=== PATIENT | female | born 1970 | race Caucasian/White ===

== ENCOUNTER → 2016-09-02 | Outpatient (CLI) | payer OTHER ==
[~2016-09-02] MED LIST: ACET-1256 PO; ATOR-24 PO; HYDR-5688 PO; IBUP-1050 PO; NAPR1TAB9 PO; ONDA4TAB46 PO; OXYC1TAB3 PO; PIRO-104 PO; RXC5 PO; SPIR100T PO
--- NOTE | 2016-09-02 15:12 | DIAGNOSTIC IMAGING REPORT ---
LEFT KNEE MRI HISTORY: LEFT KNEE PAIN COMPARISON STUDY: Left knee radiograph 07/21/2015. TECHNIQUE: Multiplanar multisequence MRI of the left knee was performed according to standard department protocol without the use of contrast. FINDINGS: Menisci: The medial and lateral menisci are intact. The medial meniscus is slightly extruded from the joint space. Ligaments: The anterior and posterior cruciate ligaments are intact. The medial and lateral collateral ligaments are normal in appearance. Extensor mechanism: The quadriceps tendon and patellar ligament are intact. Articular cartilage and bone: No fracture or dislocation. Tricompartmental marginal osteophytes. There is greater than 50% cartilage thinning within the central right portion of the medial femoral condyle. There is mild cartilage thinning within the lateral femoral condyle and lateral patellar facet. Joint effusion: None. Soft tissues: There is an 8.8 x 2.8 x 1.2 cm popliteal cyst. IMPRESSION: 1. Tricompartmental osteoarthritis as described above most pronounced within the medial compartment. 2. Popliteal cyst. 3. The medial meniscus is slightly extruded from the joint space. However, there is no evidence for meniscal tear. Electronically signed by: Rony Gray M.D. 09/02/2016 3:10 PM Dictated Date/Time: 09/02/2016 3:04 PM
== END | disposition home or self-care (01) ==
LOC: C.MRIBC 13:56
PROVIDERS: ATTEND Orthopaedic Surgery
DX: M71.22 Synovial cyst of popliteal space [Baker], left knee (principal)

== ENCOUNTER 2016-10-01 04:51 | Day surgery (SDC) | payer OTHER ==
[2016-09-14 14:41] VITALS: BMI 52.0
[2016-09-14 14:56] LABS: BASO % 0.2 %; BASO ABS # 0.02 K/uL (0-0.2); COMPLETE YES; EOS % 1.8 %; HEMATOCRIT 41.6 % (37-47); IG% 0.3 %; LYMPH % 22.6 %; LYMPH ABS # 2.12 K/uL (1.2-3.4); MEAN CELL VOLUME 95.2 fL (80-100); MEAN CORPUSCULAR HEMOGLOBIN 32.3 pg (25-34); MEAN CORPUSCULAR HGB CONC 33.9 g/dl (32-36); MEAN PLATELET VOLUME 11.4 fL (7.4-10.4); MONO % 8.4 %; NEUT % 66.7 %; PLATELET COUNT 248 K/uL (130-400); RED BLOOD COUNT 4.37 M/uL (4.2-5.4)
--- NOTE | 2016-09-14 15:12 | PAT Medication Instructions ---
Service Date Sep 14, 2016. Current Home Medication List Acetaminophen (Tylenol), 1,000 MG PO Q6 PRN for Pain Atorvastatin (Lipitor), 40 MG PO QPM Naproxen (Aleve), 440 MG PO QAM Ondansetron Hcl (Zofran), 4 MG PO PRN PRN for Nausea Oxycodone Ir (Roxicodone Ir), 5 MG PO Q4H PRN for Severe Pain Piroxicam (Piroxicam), 1 CAP PO DAILY PRN for Pain Spironolactone (Aldactone), 100 MG PO HS Medication Instructions For Your Scheduled Surgery - Check with surgeon for instructions: Piroxicam (Piroxicam), 1 CAP PO DAILY PRN for Pain Naproxen (Aleve), 440 MG PO QAM - Take the following medications the morning of surgery with a sip of water: Ondansetron Hcl (Zofran), 4 MG PO PRN PRN for Nausea (if needed) Oxycodone Ir (Roxicodone Ir), 5 MG PO Q4H PRN for Severe Pain (okay to take up to 4 hours prior to surgery if needed) - Take the following medications as scheduled the night before surgery: Spironolactone (Aldactone), 100 MG PO HS Atorvastatin (Lipitor), 40 MG PO QPM Ondansetron Hcl (Zofran), 4 MG PO PRN PRN for Nausea (if needed) Oxycodone Ir (Roxicodone Ir), 5 MG PO Q4H PRN for Severe Pain (if needed) If you have any questions please call us at [phone] (Meredith Rouse PA-C) or [phone] or [phone]
[2016-09-14 15:30] LABS: BUN/CREATININE RATIO 8.3 (10-20); CALCIUM 9.1 mg/dl (8.5-10.1); CREATININE 0.81 mg/dl (0.60-1.20); POTASSIUM 3.8 mmol/L (3.5-5.1)
--- NOTE | 2016-09-30 12:26 | HISTORY & PHYSICAL EXAMINATION ---
DATE OF ADMISSION: 10/01/2016 CHIEF COMPLAINT: Medial meniscal tear of the left knee. HISTORY OF PRESENT ILLNESS: Maria De Jesus is a pleasant 46-year-old female who I did a unicompartmental right knee arthroplasty on in the past. She has done very well with that. Unfortunately she is having a lot of left knee pain. She has trouble getting out of her recliner and trouble doing simple daily activities. She is also having a lot of trouble at work. The x-rays do not look too bad, they do not look as bad as her contralateral side did. It shows a little medial compartmental arthritis. MRI of her knee does show some arthritis but also shows an extruded medial meniscus tear. After discussions we have elected to proceed with arthroscopy. MEDICATIONS: Tylenol 1000 mg every 6 hours as needed, Lipitor 40 mg daily, Aleve as needed for pain, Zofran 4 mg as needed, oxycodone 5 mg every 4 hours as needed, Piroxicam 20 mg as needed and Aldactone 100 mg at night. PAST MEDICAL HISTORY: Migraines. PAST SURGICAL HISTORY: Significant for tonsillectomy, cholecystectomy, tubal ligation, , hysterectomy and a right unicompartmental knee arthroplasty. ALLERGIES: SULFA. FAMILY HISTORY: Noncontributory. SOCIAL HISTORY: She is . She rarely drinks. She is moderately active. REVIEW OF SYSTEMS: She complains of left knee pain. All other pertinent review of systems are negative. PHYSICAL EXAMINATION: GENERAL: She is awake, alert and orient x3. She is in no apparent distress. She is very pleasant. HEENT: Pupils are equal, round and reactive to light. Extraocular motions are intact. Oral mucosa is pink and moist. HEART: Regular rate per radial pulse. LUNGS: Lizzette symmetrically bilaterally with no audible breath sounds. ABDOMEN: Soft, nontender, nondistended. MUSCULOSKELETAL: On physical examination of the left knee she does walk independently. She has good motion from 0-125 degrees. No instability. She has more pain in the patellofemoral region that radiates up her distal quad. She has mild pain along the medial and lateral joint lines. MRI: MRI of her left knee does show mild tricompartmental arthritis slightly worse in the medial compartment. There is a little patellofemoral arthritis. There is some signs of degenerative meniscal pathology. IMPRESSION: Mild arthritis of the left knee with meniscus tear. PLAN: Will proceed with a left knee arthroscopy. Her pain is debilitating. I do not think she is a candidate for a knee replacement at this point. After the arthroscopy she will be discharged to home with oral pain medications.
[~2016-10-01] VITALS: Ht 154.9 cm; Wt 123.4 kg
[~2016-10-01 04:51] MED LIST changes: -HYDR-5688 PO; -IBUP-1050 PO; -RXC5 PO
[2016-10-01 05:32] VITALS: BP 142/90; PULSE 76; TEMP 36.6; O2SAT 96; Ht 154.9 cm; Wt 123.4 kg
[2016-10-01] MEDS ORDERED: CEFAZOLIN 3000 MG/65 ML D5W 65 ML IV SCH (06:00)
[2016-10-01] MEDS ORDERED: ACETAMINOPHEN 500 MG TAB PO SCH (06:00)
[2016-10-01] MEDS ORDERED: LACTATED RINGER'S 1000ML IV SCH (06:00)
[2016-10-01] MEDS ORDERED: LACTATED RINGER'S 1000ML 1,000 ML IV SCH (06:00)
[2016-10-01] MEDS ORDERED: LIDOCAINE 2% 20 MG/ML 5ML SYR ONE (06:18)
[2016-10-01] MEDS ORDERED: ROCURONIUM BROMIDE 10 MG/ML 5 ML VIAL ONE (06:18)
[2016-10-01] MEDS ORDERED: SUCCINYLCHOLINE CHLORIDE 20 MG/ML 10 ML VIAL IV ONE (06:18)
[2016-10-01] MEDS ORDERED: MIDAZOLAM HCL 1 MG/ML 2ML VIAL ONE (06:18)
[2016-10-01] MEDS ORDERED: ONDANSETRON INJ 2 MG/ML 2 ML VIAL ONE (06:18)
[2016-10-01] MEDS ORDERED: FENTANYL CITRATE INJ 50 MCG/1 ML 2 ML VIAL ONE (06:18)
[2016-10-01] MEDS ORDERED: DEXAMETHASONE SOD INJ 4 MG/ML VIAL ONE (06:18)
[2016-10-01] MEDS ORDERED: PROPOFOL IV EMULSION 10 MG/ML 20 ML VIAL IV ONE (06:18)
--- NOTE | 2016-10-01 06:24 | History & Physical Bridge Note ---
H&P Re-Evaluation Bridge Note: I have examined the patient, reviewed the History & Physical and in the interval since the performance of the History & Physical I have noted the following changes of clinical significance: No changes noted
[2016-10-01] MEDS ORDERED: KETOROLAC TROMETHAMINE 30 MG/ML VIAL ONE (06:28)
[2016-10-01] MEDS ORDERED: EpINEphrine INJ 1MG/ML AMP 1 MG/ML AMP ONE (06:29)
[2016-10-01] MEDS ORDERED: ALBUTEROL HFA INHALER 8.5 GM INH ONE (07:28)
[2016-10-01] MEDS ORDERED: ROPIVACAINE 0.5% 5 MG/ML 30 ML VIAL XX ONE (07:28)
[2016-10-01] MEDS ORDERED: LACTATED RINGER'S 1000ML 1,000 ML IV PRN (07:43)
[2016-10-01] MEDS ORDERED: HYDR-5688 PO (07:44)
[2016-10-01] MEDS ORDERED: KETOROLAC TROMETHAMINE 30 MG/ML VIAL IV. PRN (07:45)
[2016-10-01] MEDS ORDERED: ONDANSETRON INJ 2 MG/ML 2 ML VIAL IV PRN ×2 (07:45→08:00)
[2016-10-01] MEDS ORDERED: FENTANYL CITRATE INJ 50 MCG/1 ML 2 ML VIAL IV PRN (07:45)
[2016-10-01] MEDS ORDERED: SODIUM CHLORIDE 0.9% 1000ML 1,000 ML IV SCH (07:47)
--- NOTE | 2016-10-01 07:47 | Discharge Instructions ---
Discharge Instructions Date of Service October 01, 2016. Admission Reason for Admission: Acute Meniscal Tear, Medial Discharge Discharge Diagnosis / Problem: SAME ABOVE Discharge Goals Goal(s): Decrease discomfort, Improve function Activity Recommendations Activity Limitations: as noted below Lifting Limitations: gradually increase as tolerated Exercise/Sports Limitations: gradually increase as tolerated Weightbearing Status: Left weightbearing (as tolerated) . Instructions / Follow-Up Instructions / Follow-Up MEDICATIONS: * Resume previous medications unless instructed otherwise by your surgeon. * Always take pain medication on a full stomach or with food to avoid upset stomach. * Do not drink alcohol or drive while taking narcotics. * Ibuprofen or Tylenol may be taken if narcotic not needed. SPECIAL CARE INSTRUCTIONS: __ None _X_ Keep extremity elevated and iced x 48 hours; apply ice 20-30 minutes 8-10 times/day. May remove at night. _X_ Crutches _X_ May discard when able __ Brace/Post-op shoe __ 24 hrs/day __ Remove at night _X_ Dressing __ Maintain until seen in office, may shower with plastic over site _X_ Remove dressings in 24-48 hours and then may shower _X_ Cover incisions with band-aids after showering __ Do not remove steri-strips Call physician if chills or temperature rises above 102 degrees or pain unrelieved by prescribed pain medications. Office [phone] Current Hospital Diet Patient's current hospital diet: Discharge Diet Recommended Diet: Regular Diet Fluid Restriction: None Procedures Procedures Performed: Left Knee Arthroscopy, chondroplasty and Partial Medial Menisectomy Pending Studies Studies pending at discharge: no Work Instructions Return To Work: 3 days (WHEN PAIN IS TOLERATED ) Medical Emergencies . Who to Call and When: Medical Emergencies: If at any time you feel your situation is an emergency, please call 911 immediately. . Non-Emergent Contact Non-Emergency issues call your: Primary Care Provider Call Non-Emergent contact if: you have a fever, temperature is above 101.5 . "Provider Documentation" section prepared by Jered Henderson. . VTE Core Measure Inpt VTE Proph given/why not?: Treatment not indicated
[2016-10-01] MEDS ORDERED: HYDROCODONE/ACETAMOPHEN 5/325MG TAB PO PRN ×2 (08:00)
--- NOTE | 2016-10-01 08:20 | Anesthesiology Progress Note ---
Anesthesia Post Op Note Date & Time October 01, 2016 at 08:20 Vital Signs Pain Intensity: 0 Vital Signs Past 12 Hours Date Time Temp Pulse Resp B/P Pulse Ox O2 Delivery O2 Flow Rate FiO2 10/01/16 07:43 36.5 77 20 159/96 100 Mask 10 10/01/16 05:32 36.6 76 18 142/90 96 Room Air Notes Mental Status: alert / awake / arousable, participated in evaluation Pt Amnestic to Procedure: Yes Nausea / Vomiting: adequately controlled Pain: adequately controlled Airway Patency, RR, SpO2: stable & adequate BP & HR: stable & adequate Hydration State: stable & adequate Anesthetic Complications: no major complications apparent Pt doing well.
[2016-10-01 08:26] VITALS: BP 137/76; PULSE 90; TEMP 36.8; O2SAT 94
[2016-10-01] MEDS ORDERED: HYDROCODONE/ACETAMOPHEN 5/325MG TAB ONE (08:45)
[2016-10-01 08:55] VITALS: BP 134/75; PULSE 77; O2SAT 95
[2016-10-01 09:25] VITALS: BP 137/89; PULSE 87; TEMP 36.8; O2SAT 94
--- NOTE | 2016-10-01 09:54 | OPERATIVE REPORT ---
DATE OF OPERATION: 10/01/2016 PREOPERATIVE DIAGNOSIS: Osteoarthritis of the left knee with partial medial meniscal tear. POSTOPERATIVE DIAGNOSES: Mild to moderate tricompartmental arthritis of the left knee with small medial meniscal tear and suprapatellar synovitis. PROCEDURES: Left knee arthroscopy with chondroplasty, partial medial meniscectomy and limited synovectomy. SURGEON: Dr. Zeb Solano. CELL TUBER MACHINE: Bob Henderson PA-C, whose assistance was necessary for positioning of the leg and helping with instrumentation. ANESTHESIA: General. COMPLICATIONS: None. CONDITION: Stable to PACU. INDICATIONS: Maria De Jesus is a pleasant 46-year-old female who presented to my office with complaints of increasing left knee pain. Her pain is little out of proportion of what the x-rays showed. MRI showed mild to moderate arthritis and a small medial meniscal tear. Most of her pain was located in the suprapatellar region. She elected to undergo arthroscopy. OPERATION AND FINDINGS: On 10/01/2016, she arrived at [facility] for the above procedure. She was seen in the preoperative holding area and the operative extremity was identified and signed. She was given a preoperative antibiotic and taken back to the operating room, laid on the table in supine position and put under general anesthesia. The left knee was then prepped and draped in sterile fashion. Time-out was done and the patient and operative extremity was properly identified. A scope was introduced in the lateral parapatellar portal. Diagnostic arthroscopy showed some grade 2 and 3 chondral changes of the distal medial femoral condyle. It did not look too bad. There was a little bit of fraying to the cartilage and a few small loose cartilage chunks. There was a little grade 2 changes on the tibial plateau. There was a little fraying in the posterior medial meniscus, but no large tears. A medial parapatellar portal was made under direct visualization and a shaver was used to start a chondroplasty and do a partial medial meniscectomy. The scope was then brought into the trochlea. ACL and PCL were intact. The scope was brought into the lateral compartment. There was an area of grade 3 chondral changes on the medial aspect of the lateral femoral condyle. The tibial plateau looked okay. The meniscus was intact. There was some redundant entrapped fat pad anteriorly that was removed with the shaver. The scope was then brought into the suprapatellar pouch. There were some grade 4 chondral changes in the trochlea and some grade 3 chondral changes on the lateral facets of the patella. There was a lot of synovitis in the suprapatellar region. A shaver was used to do a limited synovectomy of the suprapatellar region. This is where most of her pain was coming from. The scope was then put into the medial parapatellar portal. Repeat diagnostic arthroscopy showed no additional pathology. A shaver was used to do a final debridement and removal of any tissue remnants. Arthroscopic instruments were then removed from the knee. Portal sites were closed with 3-0 nylon. The knee was then injected with 10 mL of Toradol. She was then placed in a soft compressive dressing, extubated, transferred to a litter and taken to the postanesthesia care unit in stable condition. She tolerated the procedure well. I attest to the content of the Intraoperative Record and any orders documented therein. Any exceptio ns are noted below.
== END 2016-10-01 09:28 | disposition home or self-care (01) ==
LOC: C.ACU 04:51
PROVIDERS: ATTEND Orthopaedic Surgery
DX: M23.204 Derangement of unspecified medial meniscus due to old tear or injury, left knee (principal); M17.12 Unilateral primary osteoarthritis, left knee; Z96.651 Presence of right artificial knee joint; Z90.49 Acquired absence of other specified parts of digestive tract; Z90.710 Acquired absence of both cervix and uterus

== ENCOUNTER → 2018-01-04 | Day surgery (SDC) | payer OTHER ==
[2018-01-03 13:34] VITALS: Ht 154.9 cm; Wt 120.5 kg
[~2018-01-04] VITALS: Ht 154.9 cm; Wt 120.5 kg
[~2018-01-04] MED LIST changes: +LIDOCAINE HCL 2% 2 ML VIAL (20MG/ML) ONE; -NAPR1TAB9 PO; +OXYC-57 PO; -OXYC1TAB3 PO; -PIRO-104 PO; +PROPOFOL IV EMULSION 10 MG/ML 20 ML VIAL ONE; +SODIUM CHLORIDE 0.9% 500ML 500 ML IV ONE; +TRAM-10 PO
--- NOTE | 2018-01-04 10:21 | Endo History and Physical ---
History & Physical Date of Service: Jan 04, 2018. Chief Complaint: Referring Physician: History of Present Illness Colonoscopy for screening in view of perforated appendix Past Surgical History Hx Cardiac Surgery: No Hx Internal Defibrillator: No Hx Pacemaker: No Hx Abdominal Surgery: Yes ( 1992, gall bladder removed in 1992, partial hysterectomy 98, APPY) Hx of Implantable Prosthesis: No Hx Post-Op Nausea and Vomiting: No Hx Cancer Surgery: No Hx Thoracic Surgery: No Hx Orthopedic: Yes (R partial knee replacement jan 2016, L KNEE MENISCUS REPAIR) Hx Urinary Tract Surgery: No Family History Polyp Social History Smoking Status: Former Smoker Hx Substance Use: No Hx Alcohol Use: Yes (2 coolers every tuesday ) Allergies Coded Allergies: Sulfa Antibiotics (Verified Allergy, Unknown, hives/fever, 01/04/18) Current Medications Reported Home Medications Medications Dose Route/Sig Max Daily Dose Days Date Category Tylenol (Acetaminophen) 500 Mg Tab 2 Tab PO DAILY 01/03/18 Reported Percocet 5MG/325MG (Oxycodone/Acetaminophen) Tab 1-2 Tablets PO Q4H PRN 10/23/17 Rx Zofran (Ondansetron HCl) 4 Mg Tab 4 Mg PO UD PRN 10/21/17 Reported Ultram (Tramadol HCl) 50 Mg Tab 50 Mg PO UD PRN 10/21/17 Reported Lipitor (Atorvastatin Calcium) 40 Mg Tab 40 Mg PO QPM 01/23/16 Reported Aldactone (Spironolactone) 100 Mg Tab 100 Mg PO HS 01/23/16 Reported Vital Signs Weight (Kilograms): 120.45 Height (Feet): 5 Height (Inches): 1 Physical Exam General Appearance: no apparent distress Respiratory/Chest: Auscultation: breath sounds normal Cardiovascular: Heart Auscultation: RRR Abdomen: Inspection & Palpation: non-distended Assessment and Plan Stable for colonoscopy
--- NOTE | 2018-01-04 11:48 | GI REPORT ---
Patient Name: Maria De Jesus Lockwood Procedure Date: 01/04/2018 10:45 AM Date of : 1970 Admit Type: Outpatient Age: 47 Gender: Female Attending MD: Abelardo Solis MD Procedure: Colonoscopy Providers: Abelardo Solis MD Referring MD: Mane Oviedo Mona D. Duncan Indications: Screening for colorectal malignant neoplasm Medicines: Monitored Anesthesia Care Complications: No immediate complications. Estimated Blood Loss: Estimated blood loss: none. Procedure: Pre-Anesthesia Assessment: - Prior to the procedure, a History and Physical was performed, and patient medications and allergies were reviewed. The patient is competent. The risks and benefits of the procedure and the sedation options and risks were discussed with the patient. All questions were answered and informed consent was obtained. Patient identification and proposed procedure were verified by the physician and the nurse in the procedure room. Mental Status Examination: alert and oriented. Airway Examination: normal oropharyngeal airway and neck mobility. Respiratory Examination: clear to auscultation. CV Examination: normal. ASA Grade Assessment: III - A patient with severe systemic disease. After reviewing the risks and benefits, the patient was deemed in satisfactory condition to undergo the procedure. The anesthesia plan was to use monitored anesthesia care (MAC). Immediately prior to administration of medications, the patient was re-assessed for adequacy to receive sedatives. The heart rate, respiratory rate, oxygen saturations, blood pressure, adequacy of pulmonary ventilation, and response to care were monitored throughout the procedure. The physical status of the patient was re-assessed after the procedure. After I obtained informed consent, the scope was passed under direct vision. Throughout the procedure, the patient's blood pressure, pulse, and oxygen saturations were monitored continuously. The scope was introduced through the anus and advanced to the terminal ileum. The colonoscopy was performed without difficulty. The patient tolerated the procedure well. The quality of the bowel preparation was good. The terminal ileum, ileocecal valve, appendiceal orifice, and rectum were photographed. Findings: The perianal and digital rectal examinations were normal. The terminal ileum appeared normal. The appendiceal orifice is normal. A 6 mm polyp was found in the ascending colon. The polyp was sessile. The polyp was removed with a cold snare. Resection and retrieval were complete. Verification of patient identification for the specimen was done by the physician and nurse using the patient's name and date. Non-bleeding internal hemorrhoids were found during retroflexion. The hemorrhoids were small. Impression: - The examined portion of the ileum was normal. - One 6 mm polyp in the ascending colon, removed with a cold snare. Resected and retrieved. - Non-bleeding internal hemorrhoids. Recommendation: - Discharge patient to home. - Await pathology results. - Repeat colonoscopy in 5 years for surveillance. - Return to referring physician. Abelardo Solis MD 01/04/2018 11:48:14 AM This report has been signed electronically. Note Initiated On: 01/04/2018 10:45 AM Number of Addenda: 0 I attest to the content of the Intraoperative Record and orders documented therein, exceptions below {[id number]}
--- NOTE | 2018-01-04 11:50 | Discharge Instructions ---
Endoscopy Patient Instructions Date / Procedure(s) Performed Jan 04, 2018. Colonoscopy Allergy Information Coded Allergies: Sulfa Antibiotics (Verified Allergy, Unknown, hives/fever, 01/04/18) Discharge Date / Findings Jan 04, 2018. Small polyp in ascending colon. hemorrhoids Provider Instructions Activity Restrictions - No exercising or heavy lifting for 24 hours. - Do not drink alcohol the day of the procedure. - Do not drive a car or operate machinery until the day after the procedure. - Do not make any important decisions or sign important papers in 24 hours after the procedure. Following Day: - Return to full activity which may include returning to work/school. Diet Start your diet with liquids and light foods (jello, soup, juice, toast). Then eat your usual diet if not nauseated. Treatment For Common After Affects For mild abdominal pain, bloating, or excessive gas: - Rest - Eat lightly - Lie on right side Follow-Up Information Follow-up with DR. CARDOZO as scheduled Anesthesia Information What You Should Know You have had a procedure that required some medicine to reduce anxiety and discomfort. This treatment is called moderate sedation. After receiving the treatment, you may be sleepy, but you will be able to breathe on your own. The effects of the treatment may last for several hours. Follow these instructions along with Activity/Diet recommendations noted above: * Do NOT do anything where dizziness or clumsiness would be dangerous. * Rest quietly at home today, then you can be up and about tomorrow. * Have a responsible person stay with you the rest of today. * You may have had an I.V. today. If so, you may take the dressing off later today. Recommendations Call your doctor if: * Trouble breathing * Continuous vomiting for more than 24 hours * Temperature above 101 degrees * Severe abdominal pain or bloating * Pain not relieved by pain medicine ordered * There is increased drainage or redness from any incision * A large amount of rectal bleeding greater than 2-3 tablespoons. (If you had a polyp/s removed or have hemorrhoids, a small amount of blood - from the rectum is to be expected.) * You have any unanswered questions or concerns. IN THE EVENT OF A SERIOUS EMERGENCY, GO TO THE NEAREST EMERGENCY ROOM Your discharge instructions were prepared by provider Abelardo Solis. Patient Instructions Signature Page Maria De Jesus Lockwood Patient (or Guardian) Signature/Date: I have read and understand the instructions given to me by my caregivers. Caregiver/RN/Doctor Signature/Date: The above-named patient and/or guardian has received patient instructions on this date. + Original Patient Signature Page (only) stays with chart. Please make copy for patient.
[2018-01-04 12:13] VITALS: BP 133/86; PULSE 73; O2SAT 96
--- NOTE | 2018-01-04 12:14 | Anesthesiology Progress Note ---
Anesthesia Post Op Note Date & Time Jan 04, 2018 at 12:14 Vital Signs Pain Intensity: 0 Vital Signs Past 12 Hours Date Time Temp Pulse Resp B/P (MAP) Pulse Ox O2 Delivery O2 Flow Rate FiO2 01/04/18 11:56 72 20 132/88 (103) 97 Room Air 01/04/18 11:41 36.5 80 16 129/83 (98) 97 Room Air 01/04/18 10:32 36.6 75 20 132/87 (102) 93 Room Air Notes Mental Status: alert / awake / arousable, participated in evaluation Pt Amnestic to Procedure: Yes Nausea / Vomiting: adequately controlled Pain: adequately controlled Airway Patency, RR, SpO2: stable & adequate BP & HR: stable & adequate Hydration State: stable & adequate Anesthetic Complications: no major complications apparent
== END | disposition home or self-care (01) ==
LOC: C.GI 09:09
PROVIDERS: ATTEND Student in an Organized Health Care Education/Training Program
DX: Z12.11 Encounter for screening for malignant neoplasm of colon (principal); D12.2 Benign neoplasm of ascending colon; K64.8 Other hemorrhoids; Z83.71 Family history of colonic polyps; Z88.2 Allergy status to sulfonamides; Z87.891 Personal history of nicotine dependence; Z79.899 Other long term (current) drug therapy

== ENCOUNTER 2018-01-16 06:08 | Emergency (ER) | payer OTHER ==
[~2018-01-16] VITALS: Ht 154.9 cm; Wt 118.0 kg
[~2018-01-16 06:08] MED LIST changes: -LIDOCAINE HCL 2% 2 ML VIAL (20MG/ML) ONE; -PROPOFOL IV EMULSION 10 MG/ML 20 ML VIAL ONE; -SODIUM CHLORIDE 0.9% 500ML 500 ML IV ONE
[2018-01-16 06:11] VITALS: TEMP 36.7; Ht 154.9 cm; Wt 118.0 kg
[2018-01-16] MEDS ORDERED: SODIUM CHLORIDE 0.9% 1000ML 1,000 ML IV STA (06:48)
[2018-01-16] MEDS ORDERED: KETOROLAC TROMETHAMINE 30 MG/ML VIAL IV STA (06:48)
[2018-01-16] MEDS ORDERED: ONDANSETRON INJ 2 MG/ML 2 ML VIAL IV STA (06:48)
[2018-01-16 06:56] LABS: BASO % 0.5 %; BASO ABS # 0.04 K/uL (0-0.2); EOS ABS # 0.17 K/uL (0-0.5); HEMATOCRIT 43.3 % (37-47); IG# 0.02 K/uL (0.00-0.02); LYMPH % 26.4 %; LYMPH ABS # 2.24 K/uL (1.2-3.4); MEAN CELL VOLUME 93.1 fL (80-100); MEAN CORPUSCULAR HEMOGLOBIN 32.3 pg (25-34); MEAN CORPUSCULAR HGB CONC 34.6 g/dl (32-36); MEAN PLATELET VOLUME 11.5 fL (7.4-10.4); MONO ABS # 0.51 K/uL (0.11-0.59); NEUT % 64.9 %; PLATELET COUNT 288 K/uL (130-400); RED CELL DISTRIBUTION WIDTH CV 13.7 % (11.5-14.5); RED CELL DISTRIBUTION WIDTH SD 46.3 fL (36.4-46.3); WHITE BLOOD COUNT 8.48 K/uL (4.8-10.8)
[2018-01-16 07:06] LABS: ALBUMIN 3.8 gm/dl (3.4-5.0); ALKALINE PHOSPHATASE 73 U/L (45-117); ALT/SGPT 34 U/L (12-78); AST/SGOT 26 U/L (15-37); BLOOD UREA NITROGEN 4 mg/dl (7-18); CALCIUM 9.2 mg/dl (8.5-10.1); CARBON DIOXIDE 25 mmol/L (21-32); CREATININE 0.74 mg/dl (0.60-1.20); GLUCOSE 107 mg/dl (70-99); LIPASE 104 U/L (73-393); POTASSIUM 3.6 mmol/L (3.5-5.1); SODIUM 142 mmol/L (136-145)
--- NOTE | 2018-01-16 07:32 | DIAGNOSTIC IMAGING REPORT ---
CT SCAN OF THE ABDOMEN AND PELVIS WITHOUT CONTRAST CLINICAL HISTORY: Right flank pain hematuria COMPARISON STUDY: October 21, 2017 TECHNIQUE: CT scan of the abdomen and pelvis was performed from the lung bases to the proximal femurs. Images are reviewed in the axial, sagittal, and coronal planes. IV contrast was not administered for this examination. A dose lowering technique was utilized adhering to the principles of ALARA. CT DOSE: 1776.26 mGy.cm FINDINGS: Lower chest: The heart is normal in size and configuration, without pericardial effusion. The lung bases and pleural spaces are clear. Liver: The unenhanced liver is normal in size, contour, and attenuation. There is no intrahepatic biliary ductal dilatation. Gallbladder: Surgically absent Spleen: Normal in size and attenuation. Pancreas: Unremarkable. Adrenal glands: Unremarkable. Kidneys: No renal, ureteral, or bladder calculi are visualized. Bowel: There are no transition zones indicate bowel obstruction. The patient is status post a prior appendectomy. There is no acute diverticulitis. Peritoneum: There is no intraperitoneal free air or abdominal ascites. Vasculature: The abdominal aorta is normal in course and caliber. Adenopathy: None. Pelvic viscera: The uterus is surgically absent Skeletal structures: No destructive osseous lesions are seen. IMPRESSION: 1. No acute intra-abdominal or pelvic findings 2. No evidence of bowel obstruction. No evidence of free air 3. No renal, ureteral, or bladder calculi identified Electronically signed by: Cedrick Dickinson M.D. 01/16/2018 7:31 AM Dictated Date/Time: 01/16/2018 7:27 AM
--- NOTE | 2018-01-16 07:43 | EMERGENCY ROOM VISIT NOTE ---
History Report prepared by Grover: Ender Langston Under the Supervision of: Dr. Yobani Morales D.O. First contact with patient: 06:37 Chief Complaint: BACK PAIN Stated Complaint: RT SIDE BACK HURT REAL BAD AND NAUSEA History of Present Illness The patient is a 47 year old female who presents to the Emergency Room with complaints of constant back pain beginning a few weeks ago. The patient states that her back pain started a few weeks ago and is centralized to her right lower back. She notes that she has been taking tramadol and oxycodone for her pain with no relief. She reports that her pain worsened this morning, and she states that bending over to tie her shoes worsened her pain. She rates her pain as a 6/10. She also complains of nausea. She denies any vomiting. She notes that she pulled a muscle in her back a month and a half ago. She reports that she has a history of kidney stones and is unsure if her current pain is caused by another kidney stone. The patient states that she also has a history of kidney infections. She notes that she does not take any blood pressure medication. She reports that she had a partial hysterectomy and has not had her period in the last twenty years. Source of History: patient Onset: a few weeks ago Position: back (lower right) Symptom Intensity: 6/10 Timing: constant Modifying Factors (Worsening): other (bending over) Associated Symptoms: + nausea, No vomiting Review of Systems See HPI for pertinent positives & negatives. A total of 10 systems reviewed and were otherwise negative. Past Medical & Surgical Medical Problems: (1) Kidney infection (2) Kidney stone (3) Osteoarthritis of knee (4) RLQ abdominal pain Surgical Problems: (1) History of appendectomy (2) History of cholecystectomy (3) History of partial hysterectomy (4) Hx of tonsillectomy (5) Previous section Family History Cancer Diabetes mellitus Gallbladder disease Heart disease Hypertension Social History Smoking Status: Never Smoker Marital Status: Occupation Status: employed Current/Historical Medications Scheduled Acetaminophen (Tylenol), 2 TAB PO DAILY Atorvastatin (Lipitor), 40 MG PO QPM Spironolactone (Aldactone), 100 MG PO HS Scheduled PRN Ondansetron Hcl (Zofran), 4 MG PO UD PRN for Nausea Oxycodone/Acetaminophen 5MG/325MG (Percocet 5MG/325MG), 1-2 TABLETS PO Q4H PRN for Pain Tramadol (Ultram), 50 MG PO UD PRN for Pain Allergies Coded Allergies: Sulfa Antibiotics (Verified Allergy, Unknown, hives/fever, 01/16/18) Physical Exam Vital Signs Date Time Temp Pulse Resp B/P (MAP) Pulse Ox O2 Delivery O2 Flow Rate FiO2 01/16/18 06:11 36.7 81 16 157/105 96 Room Air Physical Exam CONSTITUTIONAL/VITAL SIGNS: Reviewed / noted above. GENERAL: Non-toxic in appearance. INTEGUMENTARY: Warm, dry, and Hulbert. HEAD: Normocephalic. EYES: without scleral icterus or trauma. ENT/OROPHARYNX: clear and moist. LYMPHADENOPATHY/NECK: Is supple without lymphadenopathy or meningismus. RESPIRATORY: Lungs clear and equal. CARDIOVASCULAR: Regular rate and rhythm. GI/ABDOMEN: Soft and nontender. No organomegaly or pulsatile mass. No rebound or guarding. Normal bowel sounds. EXTREMITIES: Warm and well perfused. BACK: Right CVA tenderness but also tenderness to palpation to the right back musculature. NEUROLOGICAL: Intact without focal deficits. PSYCHIATRIC: normal affect. MUSCULOSKELETAL: Normally developed with good muscle tone. Medical Decision & Procedures ER Provider Diagnostic Interpretation: Radiology results as stated below per my review and radiologist interpretation: CT SCAN OF THE ABDOMEN AND PELVIS WITHOUT CONTRAST FINDINGS: Lower chest: The heart is normal in size and configuration, without pericardial effusion. The lung bases and pleural spaces are clear. Liver: The unenhanced liver is normal in size, contour, and attenuation. There is no intrahepatic biliary ductal dilatation. Gallbladder: Surgically absent Spleen: Normal in size and attenuation. Pancreas: Unremarkable. Adrenal glands: Unremarkable. Kidneys: No renal, ureteral, or bladder calculi are visualized. Bowel: There are no transition zones indicate bowel obstruction. The patient is status post a prior appendectomy. There is no acute diverticulitis. Peritoneum: There is no intraperitoneal free air or abdominal ascites. Vasculature: The abdominal aorta is normal in course and caliber. Adenopathy: None. Pelvic viscera: The uterus is surgically absent Skeletal structures: No destructive osseous lesions are seen. IMPRESSION: 1. No acute intra-abdominal or pelvic findings 2. No evidence of bowel obstruction. No evidence of free air 3. No renal, ureteral, or bladder calculi identified Electronically signed by: Cedrick Dickinson M.D. 01/16/2018 7:31 AM Laboratory Results 01/16/18 06:33 Red Blood Count 4.65, Mean Corpuscular Volume 93.1, Mean Corpuscular Hemoglobin 32.3, Mean Corpuscular Hemoglobin Concent 34.6, Mean Platelet Volume 11.5, Neutrophils (%) (Auto) 64.9, Lymphocytes (%) (Auto) 26.4, Monocytes (%) (Auto) 6.0, Eosinophils (%) (Auto) 2.0, Basophils (%) (Auto) 0.5, Neutrophils # (Auto) 5.50, Lymphocytes # (Auto) 2.24, Monocytes # (Auto) 0.51, Eosinophils # (Auto) 0.17, Basophils # (Auto) 0.04 01/16/18 06:33 Test 01/16/18 06:25 01/16/18 06:33 Urine Color YELLOW Urine Appearance CLEAR (CLEAR) Urine pH 7.0 (4.5-7.5) Urine Specific [place] 1.005 (1.000-1.030) Urine Protein NEG (NEG) Urine Glucose (UA) NEG (NEG) Urine Ketones NEG (NEG) Urine Occult Blood 1+ (NEG) Urine Nitrite NEG (NEG) Urine Bilirubin NEG (NEG) Urine Urobilinogen NEG (NEG) Urine Leukocyte Esterase NEG (NEG) Urine WBC (Auto) 1-5 /hpf (0-5) Urine RBC (Auto) 0-4 /hpf (0-4) Urine Hyaline Casts (Auto) 0 /lpf (0-5) Urine Epithelial Cells (Auto) 20-30 /lpf (0-5) Urine Bacteria (Auto) NEG (NEG) White Blood Count 8.48 K/uL (4.8-10.8) Red Blood Count 4.65 M/uL (4.2-5.4) Hemoglobin 15.0 g/dL (12.0-16.0) Hematocrit 43.3 % (37-47) Mean Corpuscular Volume 93.1 fL (80-100) Mean Corpuscular Hemoglobin 32.3 pg (25-34) Mean Corpuscular Hemoglobin Concent 34.6 g/dl (32-36) Platelet Count 288 K/uL (130-400) Mean Platelet Volume 11.5 fL (7.4-10.4) Neutrophils (%) (Auto) 64.9 % Lymphocytes (%) (Auto) 26.4 % Monocytes (%) (Auto) 6.0 % Eosinophils (%) (Auto) 2.0 % Basophils (%) (Auto) 0.5 % Neutrophils # (Auto) 5.50 K/uL (1.4-6.5) Lymphocytes # (Auto) 2.24 K/uL (1.2-3.4) Monocytes # (Auto) 0.51 K/uL (0.11-0.59) Eosinophils # (Auto) 0.17 K/uL (0-0.5) Basophils # (Auto) 0.04 K/uL (0-0.2) RDW Standard Deviation 46.3 fL (36.4-46.3) RDW Coefficient of Variation 13.7 % (11.5-14.5) Immature Granulocyte % (Auto) 0.2 % Immature Granulocyte # (Auto) 0.02 K/uL (0.00-0.02) Anion Gap 11.0 mmol/L (3-11) Est Creatinine Clear Calc Drug Dose 110.1 ml/min Estimated GFR () 110.3 Estimated GFR (Non- 95.1 BUN/Creatinine Ratio 5.7 (10-20) Calcium Level 9.2 mg/dl (8.5-10.1) Total Bilirubin 0.4 mg/dl (0.2-1) Direct Bilirubin < 0.1 mg/dl (0-0.2) Aspartate Amino Transf (AST/SGOT) 26 U/L (15-37) Alanine Aminotransferase (ALT/SGPT) 34 U/L (12-78) Alkaline Phosphatase 73 U/L (45-117) Total Protein 8.0 gm/dl (6.4-8.2) Albumin 3.8 gm/dl (3.4-5.0) Lipase 104 U/L (73-393) Laboratory results as stated above per my review. Medications Administered Medications (Trade) Dose Ordered Sig/Lj Route Start Time Stop Time Status Last Admin Dose Admin Sodium Chloride 1,000 ml @ 999 mls/hr Q1H1M STAT IV 01/16/18 06:48 01/16/18 07:48 01/16/18 06:48 999 MLS/HR Ondansetron HCl (Zofran Inj) 4 mg NOW STAT IV 01/16/18 06:48 01/16/18 06:49 DC 01/16/18 07:01 4 MG Ketorolac Tromethamine (Toradol Inj) 30 mg NOW STAT IV 01/16/18 06:48 01/16/18 06:49 DC 01/16/18 07:01 30 MG ED Course 0644: Previous medical records were reviewed. The patient was evaluated in room A12. A complete history and physical examination was performed. 0648: Toradol Inj 30mg IV, Zofran Inj 4mg IV, Sodium Chloride 1000 ml @ 999 mls/ hr IV 0744: On reevaluation, the patient is stable. I discussed the results and findings with the patient. She verbalized agreement of the treatment plan. The patient was discharged home. Medical Decision Differential considered includes cauda equina syndrome, conus medullaris, spinal cord compression syndrome, peripheral nerve compression, fractures or subluxations, intra-abdominal pathology such as abdominal aortic aneurysm or kidney stones, muscle strain, transverse myelitis, spinal cord injury. This is a 47-year-old female who presents to the ED with a chief complaint of right-sided low back pain. Patient states that she has had some intermittent pain for the past 2 weeks. She states that she has been using tramadol as well as oxycodone. The patient states that her pain increased this weekend. It is worse with certain movements. He has been doing some recent lifting and increased activity. Her vital signs reveal hypertension. Her physical exam reveals some tenderness to palpation of the lumbar right musculature as well as some right CVA tenderness. She did have some blood in her urine on her initial urine dip. CT scan of the abdomen pelvis did not show acute process. CBC and complete metabolic panel were normal. Urine revealed 1+ blood. There is no evidence of infection. The patient was told the results. She is felt to be stable for discharge and outpatient follow-up. Medication Reconcilliation Current Medication List: was personally reviewed by me Blood Pressure Screening Patient's blood pressure: Elevated blood pressure Blood pressure disposition: Elevated BP felt to be situational Impression Primary Impression: Low back pain Additional Impression: Hematuria Scribe Attestation The scribe's documentation has been prepared under my direction and personally reviewed by me in its entirety. I confirm that the note above accurately reflects all work, treatment, procedures, and medical decision making performed by me. Departure Information Dispostion Home / Self-Care Referrals Mane Cage M.D. (PCP) Forms HOME CARE DOCUMENTATION FORM, IMPORTANT VISIT INFORMATION Patient Instructions ED Low Back Pain Injury, Low Back Pain Self Care, [facility] Additional Instructions The CAT scan of your abdomen and pelvis did not show any evidence of kidney stones or other abnormality to explain your pain. The urinalysis did not show infection. Blood work was unremarkable. Your back pain is likely musculoskeletal. Continue her Ultram and Percocet. Talk to your doctor about physical therapy if symptoms persist. Problem Qualifiers
[2018-01-16 08:11] VITALS: BP 140/89; PULSE 7; O2SAT 98
== END 2018-01-16 08:11 | disposition home or self-care (01) ==
LOC: C.EDB 06:09 → C.EDA 08:11
DX: M54.5 Low back pain (principal); R31.9 Hematuria, unspecified; Z87.442 Personal history of urinary calculi; M17.10 Unilateral primary osteoarthritis, unspecified knee; Z90.711 Acquired absence of uterus with remaining cervical stump; Z90.49 Acquired absence of other specified parts of digestive tract; Z80.9 Family history of malignant neoplasm, unspecified; Z83.3 Family history of diabetes mellitus; Z83.79 Family history of other diseases of the digestive system; Z79.899 Other long term (current) drug therapy; Z88.2 Allergy status to sulfonamides

== ENCOUNTER 2019-05-04 08:05 | Inpatient (IN) ==
--- NOTE | 2019-04-06 08:58 | PAT Medication Instructions ---
Medication Instructions Date of Service April 06, 2019 Home Medications atorvastatin 40 mg PO PM 04/03/19 [History Confirmed 04/03/19] naproxen [Naprosyn] 500 mg PO QAM 04/03/19 [History Confirmed 04/03/19] spironolactone 100 mg PO QPM 04/03/19 [History Confirmed 04/03/19] tramadol 50 mg PO BID PRN 04/03/19 [History Confirmed 04/03/19] ASK your surgeon for instructions naproxen [Naprosyn] 500 mg PO QAM 04/03/19 [History Confirmed 04/03/19] Take morning of surgery With a small sip of water, OTHERWISE NOTHING TO EAT OR DRINK AFTER MIDNIGHT: tramadol 50 mg PO BID PRN (okay to take up to 4 hours prior to surgery if needed) Take evening before surgery atorvastatin 40 mg PO PM 04/03/19 [History Confirmed 04/03/19] spironolactone 100 mg PO QPM 04/03/19 [History Confirmed 04/03/19] tramadol 50 mg PO BID PRN (if needed) Other Notes If you have any questions please call us at [phone] or [phone] or [phone] or [phone]
--- NOTE | 2019-04-09 10:50 | Anesthesiology Consultation ---
Date of Service April 09, 2019 Assessment & Plan (1) Encounter for pre-operative examination: Chart Review Chart Review: Pending: Refer to Additional Notes / Consult section (pending preop testing (labs, EKG, CXR)) and Patient seen in Pre Admission Testing Teaching & Discussion Pre-Anesthesia Teaching/Discussion Notes: Instructed NPO after midnight before surgery,except medications with 15 cc of water. Medication instructions provi ded according to the PAT guidelines. History Surgery Operation Date: 05/04/19 08:50 Proposed Procedures p Left Total Knee Arthroplasty - Zeb Solano DO Height/Weight Height: 5 ft 1 in Weight: 120.7 kg Allergies Allergy/AdvReac Type Severity Reaction Status Date / Time Sulfa (Sulfonamide Allergy Unknown hives/fever Verified 04/03/19 08:03 Antibiotics) Medications Home Medications Medication Instructions Recorded Confirmed Last Taken atorvastatin 40 mg PO PM 04/03/19 04/09/19 Unknown naproxen [Naprosyn] 500 mg PO QAM 04/03/19 04/09/19 Unknown spironolactone 100 mg PO QPM 04/03/19 04/09/19 Unknown tramadol 50 mg PO BID PRN 04/03/19 04/09/19 Unknown Past Medical History Medical History History of depression History of kidney stones Morbid obesity Osteoarthritis Scoliosis Exercise / Class Metabolic Activity III < 4 Walking/Shop/Light housework Past Family History Family History Brother Family history of diabetes mellitus Mother Family history of diabetes mellitus Grandmother (Maternal) Family history of diabetes mellitus Past Surgical History Surgical History (Updated 04/09/19 @ 11:06 by Meredith Rouse) History of appendectomy laparoscopic: 10/22/17: Grade view 1, MAC#3, ETT 7 at [facility] History of arthroplasty of right knee History of arthroscopy of left knee History of History of cholecystectomy History of colonoscopy History of ERCP History of esophagogastroduodenoscopy (EGD) History of partial hysterectomy History of tonsillectomy History of tubal ligation Status post excision of lipoma Past Anesthesia History No Hx of Anesthesia Complications and No Family Hx of Anesthesia Complications History of PONV No Hx of PONV and No Hx of Motion Sickness Social History Smoking Status: Former smoker tobacco type: cigarettes Do You Dip or Chew Tobacco: No Smoking End Date: Quit 27 years ago Hx Alcohol Use: Yes alcohol intake frequency: a few times a week Hx Substance Use: No substance use type: does not use Review of Systems Patient denies chest pain, shortness of breath, reflux, cough, wheezing, palpitations. Physical Exam Vital Signs VITALS BP 0.9/86 P 61 TEMP 98.1 SP02 95%RA RESP 16 PHYSICAL Full neck and c-spine range of motion. Full TMJ range of motion. TMD 3 finger breaths Mallampati Score 3 Dentition: several missing/7 remaining teeth Lungs: clear throughout to auscultation Cardiac: regular rate and rhythm, no murmurs noted Spine: normal Carotid arteries: negative bruit Extremities: no edema Thick neck
--- NOTE | 2019-04-09 11:27 | XRay Report ---
XR chest Pre-admission PA/Lat HISTORY: 48 years-old Female pat preoperative exam. No acute chest complaints COMPARISON: Chest radiograph 10/21/2017 TECHNIQUE: PA and lateral views of the chest FINDINGS: Cardiomediastinal and hilar silhouettes are within normal limits. No pneumothorax, pleural effusion, focal airspace consolidation or overt pulmonary edema. Cholecystectomy. Degenerative changes of the s houlders and spine. IMPRESSION: No acute process. The above report was generated using voice recognition software. It may contain grammatical, syntax o r spelling errors. Electronically signed by: Alonso Parsons M.D. 04/09/2019 11:26 AM
[2019-04-09 13:32] LABS: Basophils # (auto) 0.02 K/uL (0-0.2); Basophils % (auto) 0.3 %; Eosinophils # (auto) 0.33 K/uL (0-0.5); Eosinophils % (auto) 4.2 %; Hematocrit (blood only) 44.1 % (37-47); Hemoglobin 15.3 g/dL (12.0-16.0); Immature Granulocytes # (auto) 0.01 K/uL (0.00-0.02); Immature Granulocytes % (auto) 0.1 %; Lymphocytes # (auto) 2.33 K/uL (1.2-3.4); Lymphocytes % (auto) 29.5 %; Mean Corpuscular Hgb Conc 34.7 g/dL (32-36); Mean Platelet Volume 11.8 fL (7.4-10.4); Monocytes % (auto) 6.3 %; Neutrophils # (auto) 4.71 K/uL (1.4-6.5); Neutrophils % (auto) 59.6 %; Platelet Count 234 K/uL (130-400); RDW Coefficient of Variation 13.5 % (11.5-14.5); RDW Standard Deviation 46.9 fL (36.4-46.3); Red Blood Count 4.64 M/uL (4.2-5.4)
[2019-04-09 13:44] LABS: BUN Creatinine Ratio 19.5 (10-20); Calcium 9.5 mg/dl (8.5-10.1); Creatinine Clr Calc Pharmacy 118.5 ml/min; Est GFR (African American) 117.6; Est GFR (Non-African American) 101.5; Potassium 3.6 mmol/L (3.5-5.1)
[2019-04-09 13:45] LABS: INR 0.9 (0.9-1.1); Partial Thromboplastin Ratio 0.9; Partial Thromboplastin Time 25.6 Seconds (21.0-31.0); Prothrombin Time 9.7 Seconds (9.0-12.0)
--- NOTE | 2019-05-03 09:07 | History & Physical Report ---
Date of Service May 03, 2019 Assessment & Plan (1) Osteoarthritis of left knee: We will proceed with a left total knee arthroplasty. Postoperatively she will be started on aspirin for DVT prophylaxis and kept overnight in the hospital for postop medical management. She plans to go to outpatient physical therapy in [place] upon discharge. Present on Admission?: Yes History of Present Illness Chief Complaint: Primary osteoarthritis of the left knee Primary Care Provider: Mane Cage MD Maria De Jesus is a pleasant 48-year-old female who is been dealing with chronic increasing left knee pain. I recently scoped her knee and found advanced arthritis in all 3 compartments. There was arthritis in the lateral side and in the trochlea. She does have a history of a right unicompartmental knee arthroplasty and is done well with that, however, the arthritis is more extensive in her left knee. After failing conservative treatment, she has elected proceed with a left total knee arthroplasty. Allergies Allergy/AdvReac Type Severity Reaction Status Date / Time Sulfa (Sulfonamide Allergy Unknown hives/fever Verified 04/03/19 08:03 Antibiotics) Home Medications Home Medications Medication Instructions Recorded Confirmed Type atorvastatin 40 mg PO PM 04/03/19 04/09/19 History naproxen [Naprosyn] 500 mg PO QAM 04/03/19 04/09/19 History spironolactone 100 mg PO QPM 04/03/19 04/09/19 History tramadol 50 mg PO BID PRN 04/03/19 04/09/19 History Past Med/Surg History Medical History History of depression History of kidney stones Morbid obesity Osteoarthritis Scoliosis Surgical History History of appendectomy laparoscopic: 10/22/17: Grade view 1, MAC#3, ETT 7 at [facility] History of arthroplasty of right knee History of arthroscopy of left knee History of History of cholecystectomy History of colonoscopy History of ERCP History of esophagogastroduodenoscopy (EGD) History of partial hysterectomy History of tonsillectomy History of tubal ligation Status post excision of lipoma Family History Brother Family history of diabetes mellitus Mother Family history of diabetes mellitus Grandmother (Maternal) Family history of diabetes mellitus Social History Preferred Language: Lithuanian Communication Ability: Effective Numerical Control Machine Tool Operator Required: No Beliefs That Will Affect Care: None Current Living Situation: Alone Other Information That Helps Us Care for You: No Feels Safe at Home: Yes Safety Concerns: Feels Safe At This Time Smoking Status: Former smoker Tobacco Type: cigarettes ; Do You Dip or Chew Tobacco: No ; Smoking End Date: Quit 27 years ago ; Second Hand Exposure: Yes ( was a smoker ( 4 years ago)) ; Tobacco Cessation Education Requested by Patient: No Hx Alcohol Use: Yes Hx Substance Use: No Review of Systems All systems reviewed & are unremarkable except as noted in HPI & below Physical Exam Constitutional: WD/WN, vitals as above Eyes: PERRL, conjunctivae normal, anicteric sclerae ENMT: external ear and nose normal, oropharynx normal Neck: trachea midline, no thyromegaly Respiratory: normal respiratory effort Cardiovascular: RRR, no murmur, no edema Gastrointestinal (Abdomen): normal bowel sounds, soft, nontender, no hepatosplenomegaly Musculoskeletal: On physical examination of the left knee there is a trace effusion. There is near full range of motion and no evidence of instability. There is significant tenderness palpation along the medial and lateral joint lines and over the distal femoral condyles. Psychiatric: A+Ox3, euthymic affect Results & Data Diagnostic Findings Radiographs of the left knee demonstrate advanced osteoarthritis with joint space narrowing osteophyte formation and [id number] articulation.
[~2019-05-04 08:05] MED LIST changes: -ACET-1256 PO; +ACETAMINOPHEN 500 MG TAB PO SCH; -ATOR-24 PO; +BUPIVACAINE 0.5 % 5 MG/1 ML PF 10ML VIAL ONE; +CEFAZOLIN 3000MG 72.5 ML IV SCH; +FAMOTIDINE 20 MG TAB PO SCH; +GABAPENTIN 900 MG DOSE PO SCH; +LACTATED RINGER'S 1,000 ML IV SCH; +LR 500ML BOLUS, THEN 15ML/HR IV SCH; -ONDA4TAB46 PO; -OXYC-57 PO; +ROPIVACAINE 0.5% HCL/PF 150 MG, BUPIVACAINE 0.5% MPF 30 ML, EPINEPHrine 30MG/30ML (OR U... INSTIL SCH; -SPIR100T PO; -TRAM-10 PO; +TRANEXAMIC ACID 1,000 MG **IV Intra-op IV SCH; +TRANEXAMIC ACID 1,000 MG **IV Pre-op IV SCH; +dexAMETHasone 4 MG TAB PO SCH
--- NOTE | 2019-05-04 08:21 | History & Physical Bridge Note ---
Date of Service May 04, 2019 History & Physical Bridge Note I have examined the patient, reviewed the History & Physical and in the interval since the performance of the History & Physical I have noted the following changes of clinical significance: no changes noted
[2019-05-04] MEDS ORDERED: LIDOCAINE HCL 2% 2 ML VIAL/AMP(20MG/ML) INFIL ONE (08:56)
[2019-05-04] MEDS ORDERED: PROPOFOL IV EMULSION 10 MG/ML 20 ML VIAL IV ONE ×2 (08:56→12:28)
[2019-05-04] MEDS ORDERED: MIDAZOLAM HCL 1 MG/ML 2ML VIAL ONE ×2 (08:57)
[2019-05-04] MEDS ORDERED: dexAMETHasone 4 MG TAB PO ONE (09:28)
[2019-05-04] MEDS ORDERED: TRANEXAMIC ACID / 0.7% NACL 1000MG/100ML BAG IV ONE ×2 (09:28→10:34)
[2019-05-04] MEDS ORDERED: ORTHO JOINT ANESTHETIC ONE (10:22)
[2019-05-04] MEDS ORDERED: fentaNYL citrate 100 MCG/2 ML VIAL IV PRN (10:30)
[2019-05-04] MEDS ORDERED: ONDANSETRON INJ 2 MG/ML 2 ML VIAL IV PRN ×2 (10:30→14:02)
[2019-05-04] MEDS ORDERED: ATROPINE SULFATE 0.1 MG/ML 10ML SYR IV PRN (10:30)
[2019-05-04] MEDS ORDERED: ePHEDrine sulfate 50 MG/ML AMP IV PRN (10:30)
[2019-05-04] MEDS ORDERED: ePHEDrine sulfate 50 MG/ML SYR ONE (11:24)
[2019-05-04] MEDS ORDERED: PHENYLEPHRINE 100MCG/ML 5ML SYR ONE (11:24)
[2019-05-04] MEDS ORDERED: PHENYLEPHRINE HCL 10 MG/ML VIAL ONE (11:24)
--- NOTE | 2019-05-04 12:27 | Operative Report ---
PG Post Operative Report Pre & Post Diagnosis Operation Date: 05/04/19 11:00 Pre-Op Diagnosis: LEFT KNEE DEGENERATIVE JOINT DISEASE Post-Op Diagnosis: LEFT KNEE DEGENERATIVE JOINT DISEASE I identified the patient and participated in the time-out.: Yes Procedure Operation Date: 05/04/19 11:00 Actual Procedures p Left Total Knee Arthroplasty(Left) - Zeb Solano DO Surgeon Zeb Solano DO Senior Graduate Advisor Zeb Em PAC Estimated Blood Loss 20 Findings Consistent with Post-Op Diagnosis Specimens Left femoral and tibial bone Complications none Disposition Disposition: Recovery Room Indications Maria De Jesus is a pleasant 48-year-old female who presented my office with chronic increasing left knee pain. She had a previous knee arthroscopy which showed advanced arthritis of all 3 compartments. After failing conservative treatment, she elected proceed with a left total knee arthroplasty. Description of Procedure Implants used: I used a [employer] Vanguard total knee arthroplasty system with a size 65 femur, 67 tibia, 28 patella, and a size 10 PS polyethylene bearing. All components were cemented in place with Palacos G cement. The patient arrived [facility] for the above procedure. There were seen in the preoperative holding area and the operative extremity was identified and signed. There were given a preoperative antibiotic, a spinal anesthetic and an adductor nerve block. There were taken back to the operating room and laid on the table in supine position. There were given basic sedation. The operative knee was then prepped and draped in sterile fashion. A timeout was done, and the patient and the operative extremity was properly identified. A midline incision was made directly over the patella. Dissection was taken down to the extensor mechanism. A subvastus arthrotomy was used. The medial retinaculum was released and the fat pad was mostly left intact. The knee was flexed and the ACL, PCL, and meniscus were removed. A drill was sent down the center of the femoral canal followed by an intramedullary dougie. Off that dougie a distal femoral cutting block was placed. 9 mm was resected off the distal femur at 5 of valgus. A posterior referencing AP sizing guide was then placed on the distal femur. The femur measured to be a size 65. 2 drill holes were placed in 3 of external rotation. A 4-in-1 cutting block was then impacted into place. Anterior posterior and chamfer cuts were then made. The posterior stabilizing box guide was then impacted into place and the box was resected for the posterior stabilizing component. The p roximal tibia was then exposed. A drill was sent down the center of the tibial canal followed by an intramedullary dougie. Off that dougie a proximal tibial resection guide was placed. The proximal tibia was then resected. The tibia measured to be a size 67. The tibial plate was then placed in the appropriate rotation and the tibia was punched. The posterior aspect of the knee was then opened up and any additional meniscus fragments and osteophytes were removed. Trial components were then placed. I used a size 10 PS polyethylene insert. The knee was brought through a full range of motion and felt to be stable. The patella was then everted and 8 mm was resected off the posterior aspect of the patella. The patella measured to be a size 28. 3 peg holes were then drilled. A trial patella was placed. The knee was once again brought through a full range of motion and felt to be stable. Trial components were then removed. The surrounding soft tissues were injected with 100 cc of an orthopedic pain control cocktail. All components were then cemented into place with Palacos G cement. The final polyethylene insert was then snapped into place and the anterior bar was locked. Once cement was dry the tourniquet was deflated. Hemostasis was obtained. A dilute betadyne lavage was then done for 3 minutes. The joint was then irrigated with normal saline solution. The subvastus arthrotomy was then closed with #1 Vicryl suture. The skin was closed with 2-0 Vicryl, 3-0V lock suture, and ivana. A soft compressive dressing was placed. The patient was then transferred to a ospital bed and taken to the postanesthesia care unit in stable condition. They tolerated the procedure well. I attest to the content of the Intraoperative Record and any orders documented therein. Any exceptions are noted below.
--- NOTE | 2019-05-04 13:23 | XRay Report ---
XR knee LT 1 or 2V routine CLINICAL HISTORY: Surgical Post Op COMPARISON: Left knee radiographs February 05, 2019. FINDINGS: Alignment of the total left knee arthroplasty is anatomic. There is no fracture or unexpec sheryl radiopaque foreign body. There are skin ivana. IMPRESSION: Expected findings following total left knee arthroplasty. Electronically signed by: Otf Thompson M.D. 05/04/2019 1:22 PM
[2019-05-04] MEDS ORDERED: OXYCODONE HCL IR 5 MG TAB (IMMEDIATE RELEASE) PO PRN (14:02)
[2019-05-04] MEDS ORDERED: MAGNESIUM HYDROXIDE SUSP 30 ML UDC PO PRN (14:02)
[2019-05-04] MEDS ORDERED: NALOXONE HCL 0.4 MG/1 ML VIAL/CARP IV PRN (14:02)
[2019-05-04] MEDS ORDERED: HYDROmorphone INJ 0.5 MG/0.5 ML SYR IV PRN (14:02)
[2019-05-04] MEDS ORDERED: bisacodyL 10 MG SUPP PR PRN (14:02)
[2019-05-04] MEDS ORDERED: METOCLOPRAMIDE HCL INJ 5 MG/ML 2 ML VIAL IV PRN (14:02)
--- NOTE | 2019-05-04 14:45 | Anesthesiology Progress Note ---
Date of Service May 04, 2019 Anesthesia Post Procedure Vital Signs Vital Signs: Temp Pulse Pulse Resp BP Pulse Ox 05/04/19 14:29 88 16 120/79 95 05/04/19 14:00 98.1 F 82 16 120/79 96 05/04/19 13:30 98.4 F 88 20 119/78 96 05/04/19 13:20 98.4 F 90 19 121/81 94 05/04/19 13:10 94 H 19 125/86 94 05/04/19 13:00 94 H 25 H 119/81 92 05/04/19 12:56 99.3 F 91 H 19 125/73 94 05/04/19 09:31 98.4 F 75 18 147/95 H 94 Pain Intensity Left Knee: Pain Intensity: 0 Transfer of Care Handoff Completed per policy Notes Mental Status: alert / awake / arousable and participated in evaluation Patient Amnestic to Procedure: Yes Nausea / Vomiting: adequately controlled Pain: adequately controlled Airway Patency, RR, SpO2: stable & adequate BP & HR: stable & adequate Hydration State: stable & adequate Neuraxial Anesthesia: was administered and sensory block is resolving Anesthetic Complications: no major complications apparent and Pt Satisfied with anesthetic care
[2019-05-04] MEDS: ACETAMINOPHEN 500 MG TAB PO SCH ×2 (15:49→22:43)
[2019-05-04] MEDS: KETOROLAC 30 MG/ML VIAL IV SCH ×2 (15:49→22:43)
[2019-05-04] MEDS: SODIUM CHLORIDE 0.9% 1000ML 1,000 ML IV SCH (15:53)
[2019-05-04] MEDS: CEFAZOLIN 2000MG 2,000 MG/15 ML SYR IV SCH (20:11)
[2019-05-04] MEDS: DOCUSATE SODIUM 100 MG CAP PO SCH (20:12)
[2019-05-04] MEDS: SPIRONOLACTONE 100 MG TAB PO SCH (20:12)
[2019-05-04] MEDS: ASPIRIN 81 MG ECTAB PO SCH (20:12)
[2019-05-04] MEDS: ATORVASTATIN 40 MG TAB PO SCH (20:12)
[2019-05-04] MEDS: SENNA 8.6 MG TAB PO SCH (20:12)
[2019-05-05] MEDS: CEFAZOLIN 2000MG 2,000 MG/15 ML SYR IV SCH (02:05)
[2019-05-05] MEDS: SODIUM CHLORIDE 0.9% 1000ML 1,000 ML IV SCH (02:16)
[2019-05-05] MEDS: KETOROLAC 30 MG/ML VIAL IV SCH ×4 (05:01→21:53)
[2019-05-05] MEDS: ACETAMINOPHEN 500 MG TAB PO SCH ×3 (05:02→21:49)
[2019-05-05 06:39] LABS: Hematocrit (blood only) 38.1 % (37-47); Hemoglobin 12.9 g/dL (12.0-16.0); Mean Corpuscular Hemoglobin 32.4 pg (25-34); Mean Corpuscular Hgb Conc 33.9 g/dL (32-36); Mean Corpuscular Volume 95.7 fL (80-100); Mean Platelet Volume 11.1 fL (7.4-10.4); Platelet Count 257 K/uL (130-400); RDW Standard Deviation 45.1 fL (36.4-46.3); Red Blood Count 3.98 M/uL (4.2-5.4); White Blood Count 20.02 K/uL (4.8-10.8)
[2019-05-05 07:18] LABS: BUN Creatinine Ratio 13.9 (10-20); Calcium 8.8 mg/dl (8.5-10.1); Est GFR (African American) 73.4; Est GFR (Non-African American) 63.3; Potassium 3.9 mmol/L (3.5-5.1)
[2019-05-05] MEDS ORDERED: dexAMETHasone 10 MG in SYRINGE 0 ML IV SCH (08:00)
[2019-05-05] MEDS: DOCUSATE SODIUM 100 MG CAP PO SCH ×2 (08:45→20:52)
[2019-05-05] MEDS: ASPIRIN 81 MG ECTAB PO SCH ×2 (08:45→20:52)
[2019-05-05] MEDS: MULTIVITAMIN TAB PO SCH (08:45)
--- NOTE | 2019-05-05 09:19 | Orthopedic Progress Note ---
Date of Service May 05, 2019 Assessment & Plan (1) History of total left knee replacement: Overall she is doing very well. She is not having much pain in the left knee. She is on aspirin for DVT prophylaxis. She will be seen by physical therapy again tomorrow for ambulation and range of motion exercises. We plan to discharge her to home tomorrow. Present on Admission?: Yes Chen Pretty was seen and examined at bedside this morning. Overall she is doing very well. She is already ambulated with physical therapy. Her pain is controlled. She has no complaints. Physical Exam Musculoskeletal: On physical examination of the left knee, the dressing is clean and dry. She is active dorsiflexion and plantarflexion of her left ankle. She sitting in the chair with her knee flexed at about 60 degrees. Results & Data Vital Signs (Past 12 Hours) Vital Signs Temp Pulse Resp BP Pulse Ox 05/05/19 07:27 37 C 73 16 97/62 L 96 05/05/19 02:03 36.9 C 78 16 95/61 L 94 05/04/19 23:00 36.8 C 86 16 98/63 L 94 Laboratory Results H & H 04/09/19 05/05/19 Range/Units 11:09 06:15 Hgb 15.3 12.9 (12.0-16.0) g/dL Hct 44.1 38.1 (37-47) % Coagulation 04/09/19 Range/Units 11:09 INR 0.9 (0.9-1.1) Diagnostic Findings Postoperative x-rays of the left knee show the prosthesis to be in anatomic alignment without any evidence of fracture, dislocation, or loosening. PG Care Time/CCT Total # of Minutes Spent Total Time Spent with Patient: Total time spent is greater than 50% in coordination of care (as documented) at patient's floor/unit and/or counseling patient:
[2019-05-05] MEDS: SENNA 8.6 MG TAB PO SCH (20:51)
[2019-05-05] MEDS: ATORVASTATIN 40 MG TAB PO SCH (20:52)
[2019-05-05] MEDS: SPIRONOLACTONE 100 MG TAB PO SCH (20:52)
[2019-05-05 23:52] VITALS: PULSE 75; O2SAT 96
[2019-05-06] MEDS: KETOROLAC 30 MG/ML VIAL IV SCH ×2 (05:07→09:42)
[2019-05-06] MEDS: ACETAMINOPHEN 500 MG TAB PO SCH (05:07)
[2019-05-06 06:06] VITALS: BP 124/81; TEMP 97.7
[2019-05-06] MEDS: DOCUSATE SODIUM 100 MG CAP PO SCH (07:39)
[2019-05-06] MEDS: MULTIVITAMIN TAB PO SCH (07:40)
[2019-05-06] MEDS: ASPIRIN 81 MG ECTAB PO SCH (07:40)
--- NOTE | 2019-05-06 07:58 | Orthopedic Progress Note ---
Date of Service May 06, 2019 Assessment & Plan (1) History of total left knee replacement: Overall she is doing very well. She is on aspirin for DVT prophylaxis. She has been up and ambulating with physical therapy. We will discharge her to home today. She will follow-up with orthopedics in 2 weeks. Present on Admission?: Yes Subjective Maria De Jesus was seen and examined at bedside this morning. Overall she is doing very well. She not having much pain in the left knee. She is happy with her progress to this point. She participated well with physical therapy yesterday. She has no complaints. Physical Exam Musculoskeletal: On physical examination of the left knee, the dressing has been changed and the incision is clean and dry. She has active dorsiflexion and plantarflexion of her left ankle. Her knee is out in full extension. Results & Data Vital Signs (Past 12 Hours) Vital Signs Temp Pulse Resp BP Pulse Ox 05/06/19 06:05 36.5 C 75 16 124/81 96 05/05/19 23:00 36.7 C 75 16 106/68 96 PG Care Time/CCT Total # of Minutes Spent Total Time Spent with Patient: Total time spent is greater than 50% in c oordination of care (as documented) at patient's floor/unit and/or counseling patient:
--- NOTE | 2019-05-06 08:00 | Discharge Summary ---
Date of Service May 06, 2019 Admission HPI Per Admitting Provider Maria De Jesus is a pleasant 48-year-old female who is been dealing with chronic increasing left knee pain. I recently scoped her knee and found advanced arthritis in all 3 compartments. There was arthritis in the lateral side and in the trochlea. She does have a history of a right unicompartmental knee arthroplasty and is done well with that, however, the arthritis is more extensive in her left knee. After failing conservative treatment, she has elected proceed with a left total knee arthroplasty. Principal Diagnosis Left total knee arthroplasty Discharge Data Allergies Allergy/AdvReac Type Severity Reaction Status Date / Time Sulfa (Sulfonamide Allergy Unknown hives/fever Verified 05/04/19 09:10 Antibiotics) Consultations 05/04/19 14:02 Consult Case Management - Discharge Planning Routine Procedures Performed Operation Date: 05/04/19 11:00 Actual Procedures p Left Total Knee Arthroplasty(Left) - Zeb Solano DO Ordered Studies 05/04/19 05:00 US - OR guided needle placemen Routine Hospital Course (1) History of total left knee replacement: On May 04, 2019 Maria De Jesus arrived at [facility] and underwent a left total knee arthroplasty without complication. She had a spinal anesthetic. Postoperatively she was started on aspirin for DVT prophylaxis and discharged to general orthopedic floors. Her hospital course was uneventful. On postop day #1 her H&H was stable and her pain was well controlled. She was able to participate well with physical therapy. On postop day #2 her dressing was changed. She continued to do well. She was seen once again by physical therapy. She was then discharged home. She will follow-up with orthopedics in 2 weeks. Total Time Total Time Spent Total Time Spent (In Minutes): 20 Discharge Plan Discharge Items Reason For Visit: LEFT KNEE DEGENERATIVE JOINT DISEASE Follow-up/Referrals: Mane Cage MD [Primary Care Provider] - Medications and DC Order Prescriptions: No Action atorvastatin 40 mg Tablet 40 mg PO PM RF: 0 spironolactone 100 mg Tablet 100 mg PO QPM RF: 0 tramadol 50 mg Tablet 50 mg PO BID PRN (Reason: Pain) RF: 0 naproxen [Naprosyn] 500 mg Tablet 500 mg PO QAM RF: 0 Admission Data Admit Date/Time: 05/04/19 12:58 Attending Provider: Zeb Solano Admit Provider: Zeb Solano Primary Care Provider: Mane Cage
== END 2019-05-06 10:30 | disposition home or self-care (01) | DRG 470 ==
LOC: ASU 08:05 → 3E 12:58
DX: E66.01 Morbid (severe) obesity due to excess calories; M17.12 Unilateral primary osteoarthritis, left knee; Z88.2 Allergy status to sulfonamides; Z83.3 Family history of diabetes mellitus; M41.9 Scoliosis, unspecified; Z68.43 Body mass index [BMI] 50.0-59.9, adult; Z87.891 Personal history of nicotine dependence

== ENCOUNTER 2020-12-22 07:26 | Observation (INO) ==
--- NOTE | 2020-11-28 13:38 | PAT Medication Instructions ---
Medication Instructions Date of Service November 28, 2020 Home Medications Medication Instructions Recorded miscellaneous medical supply #1 ea 05/22/19 atorvastatin 40 mg PO PM spironolactone 100 mg PO QPM acetaminophen [Tylenol Extra Strength] 1,000 mg PO Q6H PRN naproxen 500 mg tablet,delayed release 500 mg PO BID PRN tramadol 50 mg tablet 50 mg PO Q6H PRN ASK your surgeon for instructions naproxen 500 mg tablet,delayed release 500 mg PO BID PRN Take morning of surgery With a small sip of water, OTHERWISE NOTHING TO EAT OR DRINK AFTER MIDNIGHT: acetaminophen [Tylenol Extra Strength] 1,000 mg PO Q6H PRN (okay to take up to 4 hours prior to surgery if needed) tramadol 50 mg tablet 50 mg PO Q6H PRN (okay to take up to 4 hours prior to surgery if needed) Take evening before surgery atorvastatin 40 mg PO PM spironolactone 100 mg PO QPM acetaminophen [Tylenol Extra Strength] 1,000 mg PO Q6H PRN (if needed) tramadol 50 mg tablet 50 mg PO Q6H PRN (if needed) Other Notes If you have any questions please call us at [phone] or [phone] or [phone] or [phone]
--- NOTE | 2020-12-01 10:20 | Anesthesiology Consultation ---
Date of Service December 01, 2020 Assessment & Plan (1) Encounter for pre-operative examination: - COVID screening: Per assessment on 12/01: Travel screen negative, no known COVID-19 positive contacts or current COVID-19 related symptoms. Patient vaccinated. Surgeon arranging preop COVID testing. Awaiting results. - Left TKA (05/04/19): SAB at L3-L4 (x1 attempt) + PNB at [facility] - Left total knee manipulation (07/05/19): MAC at [facility] - Anxious: Pt anxious/afraid regarding IV insertion Chart Review Chart Review: Acceptable Risk for Surgery and Patient seen in Pre Admission Testing Teaching & Discussion Pre-Anesthesia Teaching/Discussion Notes: Instructed NPO after midnight before surgery,except medications with 15 cc of water. Medication instructions provided according to the PAT guidelines. History Surgery Operation Date: 12/22/20 08:50 Proposed Procedures p Totaly Lateral Total Hip Replacment - Zeb Solano, Height/Weight Height: 5 ft 1 in Weight: 117.4 kg Allergies Allergy/AdvReac Type Severity Reaction Status Date / Time Sulfa (Sulfonamide Allergy Intermediate Hives, Verified 12/01/20 10:28 Antibiotics) fever Medications Home Medications Medication Instructions Recorded Confirmed Last Taken atorvastatin 40 mg PO PM 04/03/19 11/26/20 07/04/19 spironolactone 100 mg PO QPM 04/03/19 11/26/20 07/04/19 miscellaneous medical supply #1 ea 05/22/19 01/14/20 Unknown acetaminophen [Tylenol Extra 1,000 mg PO Q6H PRN 06/27/19 11/26/20 07/04/19 Strength] naproxen 500 mg tablet,delayed 500 mg PO BID PRN 03/04/20 11/26/20 Unknown release tramadol 50 mg tablet 50 mg PO Q6H PRN 03/04/20 11/26/20 Unknown apple cider vinegar 1 tab PO DAILY 12/01/20 12/01/20 Unknown Past Medical History Medical History History of depression History of kidney stones Morbid obesity Osteoarthritis Scoliosis Exercise / Class Metabolic Activity II 4-5 Yardwork/Stairs/Walk up hill (No CP, no SOB (lots of activity/walking throughout day)) Past Family History Family History Brother Family history of diabetes mellitus Mother Family history of diabetes mellitus Grandmother (Maternal) Family history of diabetes mellitus Other No family history of adverse response to anesthesia Past Surgical History Surgical History History of appendectomy History of arthroplasty of right knee History of arthroscopy of left knee History of x1 History of cholecystectomy History of colonoscopy History of ERCP History of esophagogastroduodenoscopy (EGD) History of partial hysterectomy History of tonsillectomy History of total left knee replacement Left TKA (05/04/19): SAB at L3-L4 (x1 attempt) + PNB at [facility] History of tubal ligation S/P surgical manipulation of knee joint Left total knee manipulation (07/05/19): MAC at [facility] Status post excision of lipoma [place] teeth removed Past Anesthesia History No Hx of Anesthesia Complications and No Family Hx of Anesthesia Complications History of PONV No Hx of PONV and No Hx of Motion Sickness Social History Smoking Status: Former smoker tobacco type: cigarettes Do You Dip or Chew Tobacco: No Smoking End Date: Quit 25+ years ago Hx Alcohol Use: Yes Alcohol type: hard liquor alcohol intake frequency: a few times a month substance use type: does not use Review of Systems Patient denies chest pain, shortness of breath, dyspnea on exertion, fever, chills, cough, wheezing, palpitations. Physical Exam Vital Signs VITALS BP 127/89 P 84 TEMP 98.5 SP02 96%RA RESP 16 PHYSICAL Full cervical extension range of motion. Full TMJ range of motion. TMD 3.5 finger breaths Mallampati Score 2 Dentition: 2 teeth remaining on upper and ~4-5 on lower Lungs: clear throughout to auscultation Cardiac: regular rate and rhythm, no murmurs noted Spine: normal Carotid arteries: negative bruit Extremities: no edema Lab Results Anesthesia Preop Results Results Anesthesia Widget: WBC 5.17 K/uL (4.8-10.8) 12/01/20 Hgb 14.9 g/dL (12.0-16.0) 12/01/20 Hct 43.1 % (37-47) 12/01/20 Plt 240 K/uL (130-400) 12/01/20 Na 139 mmol/L (136-145) 12/01/20 K 3.7 mmol/L (3.5-5.1) 12/01/20 Cl 106 mmol/L (98-107) 12/01/20 CO2 30 mmol/L (21-32) 12/01/20 BUN 9 mg/dl (7-18) 12/01/20 Creat 0.65 mg/dl (0.6-1.2) 12/01/20 Glucose Level 112 mg/dl (70-99) H 12/01/20 PT 9.5 Seconds (9.0-12.0) 12/01/20 PTT 25.4 Seconds (21.0-31.0) 12/01/20 INR 0.9 (0.9-1.1) 12/01/20 Blood Type A Positive 12/01/20 Antibody Screen NEGATIVE 12/01/20 Testing Electrocardiogram Date: 12/01/20 Findings: + NSR @ (73) Chest X-Ray Date: 12/01/20 Findings: + NAD
--- NOTE | 2020-12-18 16:17 | History & Physical Report ---
Date of Service December 18, 2020 Assessment & Plan (1) Osteoarthritis of left hip: We will proceed with a left lateral total hip arthroplasty. Postoperatively she will be started on aspirin for DVT prophylaxis and kept overnight in the hospital for postoperative medical management. She plans to use [facility] in [place] for physical therapy upon discharge. History of Present Illness Chief Complaint: Osteoarthritis of the left hip. Primary Care Provider: Mane Cage MD Maria De Jesus is a pleasant 50-year-old female who I did a left knee replacement on June 2019. She is done well with that. Unfortunately she has been struggling with her left hip. X-rays and clinical examination have been diagnostic for advanced osteoarthritis of the left hip. After failing conservative treatment, she has elected proceed with a left total hip arthroplasty.. Allergies Allergy/AdvReac Type Severity Reaction Status Date / Time Sulfa (Sulfonamide Allergy Intermediate Hives, Verified 12/01/20 10:28 Antibiotics) fever Home Medications Medication Instructions Recorded Confirmed Type atorvastatin 40 mg tablet 40 mg PO PM 04/03/19 11/26/20 History spironolactone 100 mg tablet 100 mg PO QPM 04/03/19 11/26/20 History Dayday [employer] #1 ea 05/22/19 01/14/20 Rx acetaminophen 500 mg tablet 1,000 mg PO Q6H PRN 06/27/19 11/26/20 History (Tylenol Extra Strength) naproxen 500 mg tablet,delayed 500 mg PO BID PRN 03/04/20 11/26/20 History release (EC-Naprosyn) tramadol 50 mg tablet 50 mg PO Q6H PRN 03/04/20 11/26/20 History apple cider vinegar 1 tab PO DAILY 12/01/20 12/01/20 History Past Med/Surg History Medical History History of depression History of kidney stones Morbid obesity Osteoarthritis Scoliosis Surgical History History of appendectomy History of arthroplasty of right knee History of arthroscopy of left knee History of x1 History of cholecystectomy History of colonoscopy History of ERCP History of esophagogastroduodenoscopy (EGD) History of partial hysterectomy History of tonsillectomy History of total left knee replacement Left TKA (05/04/19): SAB at L3-L4 (x1 attempt) + PNB at [facility] History of tubal ligation S/P surgical manipulation of knee joint Left total knee manipulation (07/05/19): MAC at [facility] Status post excision of lipoma [place] teeth removed Family History Brother Family history of diabetes mellitus Mother Family history of diabetes mellitus Grandmother (Maternal) Family history of diabetes mellitus Other No family history of adverse response to anesthesia Social History Smoking Status: Former smoker Second Hand Exposure: Yes (IN THE PAST); Hx Alcohol Use: Yes Alcohol type: hard liquor Preferred Language: Yi Communication Ability: Effective Client Program Manager Required: No Beliefs That Will Affect Care: None Current Living Situation: Alone Feels Safe at Home: Yes Assistive Devices: Cane and Glasses Review of Systems All systems reviewed & are unremarkable except as noted in HPI & below. Physical Exam Physical examination of the left hip, she has a large pannus. She has decreased range of motion of her hip. She has pain with forced internal and external rotation. All of her pain is in her groin.. Constitutional WD/WN, vitals as above Eyes PERRL, conjunctivae normal, anicteric sclerae ENMT external ear and nose normal, oropharynx normal Neck trachea midline, no thyromegaly Respiratory normal respiratory effort Cardiovascular RRR, no murmur, no edema Gastrointestinal (Abdomen) normal bowel sounds, soft, nontender, no hepatosplenomegaly Psychiatric A+Ox3, euthymic affect Results & Data Results & Data Laboratory Results . Diagnostic Findings X-rays of the left hip do show advanced osteoarthritis with joint space narrowing, osteophyte formation, and [id number] articulation. PG Care Time/CCT Total # of Minutes Spent Total Time Spent with Patient: Total time spent is greater than 50% in coordination of care (as documented) at patient's floor/unit and/or counseling patient: Coding Level of Care Code None Diagnoses Osteoarthritis of left hip M16.12
[~2020-12-22 07:26] MED LIST changes: -CEFAZOLIN 3000MG 72.5 ML IV SCH; -LACTATED RINGER'S 1,000 ML IV SCH; +LR 60ML/HR IV SCH; -ROPIVACAINE 0.5% HCL/PF 150 MG, BUPIVACAINE 0.5% MPF 30 ML, EPINEPHrine 30MG/30ML (OR U... INSTIL SCH; +ROPIVACAINE 0.5% HCL/PF 150 MG, BUPIVACAINE 0.75% MPF 20 ML, EPINEPHrine 30MG/30ML (OR ... INSTIL SCH; +ceFAZolin 2000MG 2,000 MG/15 ML SYR IV SCH
[2020-12-22] MEDS ORDERED: ORTHO JOINT ANESTHETIC ONE (10:05)
[2020-12-22] MEDS ORDERED: ATROPINE SULFATE 0.1 MG/ML 10ML SYR IV PRN (10:07)
[2020-12-22] MEDS ORDERED: ePHEDrine sulfate 50 MG/ML AMP IV PRN (10:07)
[2020-12-22] MEDS ORDERED: ONDANSETRON INJ 2 MG/ML 2 ML VIAL IV PRN ×2 (10:07→15:16)
[2020-12-22] MEDS ORDERED: fentaNYL citrate 100 MCG/2 ML VIAL IV PRN (10:07)
[2020-12-22] MEDS ORDERED: HYDROmorphone INJ 2 MG/ML SYR/VIAL IV PRN (10:07)
[2020-12-22] MEDS ORDERED: PROPOFOL IV EMULSION 10 MG/ML 20 ML VIAL IV ONE ×2 (10:20→13:29)
[2020-12-22] MEDS ORDERED: fentaNYL citrate 100 MCG/2 ML VIAL ONE (10:50)
[2020-12-22] MEDS ORDERED: MIDAZOLAM HCL 1 MG/ML 2ML VIAL ONE ×2 (10:50→10:51)
--- NOTE | 2020-12-22 11:22 | History & Physical Bridge Note ---
Date of Service December 22, 2020 History & Physical Bridge Note I have examined the patient, reviewed the History & Physical and in the interval since the performance of the History & Physical I have noted the following changes of clinical significance: no changes noted
[2020-12-22] MEDS ORDERED: ePHEDrine sulfate 50 MG/ML SYR ONE (12:20)
--- NOTE | 2020-12-22 13:48 | XRay Report ---
INTRAOPERATIVE CROSSTABLE LATERAL RADIOGRAPH OF THE LEFT HIP CLINICAL HISTORY: LEFT XTABLE HIP IN OR COMPARISON: Left hip radiographs November 09, 2020. FINDINGS: Alignment of the left hip arthroplasty is anatomic. No periprosthetic fracture is identifi ed on this examination. There is an acetabular screw. IMPRESSION: Expected findings during left hip arthroplasty. ACT 112: Negative or not required by law. Electronically signed by: Otf Thompson M.D. 12/22/2020 1:47 PM
--- NOTE | 2020-12-22 14:34 | Operative Report ---
PG Post Operative Report Pre & Post Diagnosis Operation Date: 12/22/20 10:20 Pre-Op Diagnosis: Left Hip Osteoarthritis Post-Op Diagnosis: Left Hip Osteoarthritis I identified the patient and participated in the time-out.: Yes Procedure Operation Date: 12/22/20 10:20 Actual Procedures p Left Lateral Total Hip Replacment(Left) with increased difficulty due to a BMI of 47.6 (modifier 22)- Zeb Solano DO Surgeon Zeb Solano, 411 Directory Assistance Operator Zeb Em PAC Estimated Blood Loss 300 Findings Consistent with Post-Op Diagnosis Specimens Left femoral head Complications none Disposition Disposition: Recovery Room Indications Maria De Jesus is a pleasant 50-year-old female who is been dealing with chronic worsening left hip and groin pain. X-rays and clinical examination have been diagnostic for advanced osteoarthritis of the left hip. After failing conserv ative treatment, she elected proceed with a left lateral total hip arthroplasty. Description of Procedure Modifier 22: This case took about 50% longer than a standard hip replacement due to her size. She has a BMI of 47.6. This caused increased time and difficulty with dissection, retractor placement, and closure. Implants used: I used a Nitza [employer]omet size 0 high offset Avenir complete collared stem with a 32 mm ceramic head and a -3.5 neck. The cup was a 48 mm G7 Biomet shell and a 48 mm neutral liner. A single 25 mm screw was placed On December 22, 2020 Maria De Jesus arrived at [facility] for the above procedure. She was seen in the preoperative holding area and the operative extremity was then fine signed. She was given a preoperative antibiotic and a spinal anesthetic. She was taken back the operating room and laid on the table in the supine position. She was given basic sedation. She was then put in the lateral decubitus position. The left hip was prepped and draped in sterile fashion. A timeout was done. The patient and the operative extremity was properly identified. A lateral approach was used. Dissection was taken down to the fascia. The fascia was split longitudinally. The abductors were exposed. The anterior third of the abductors were then tenotomized off the greater trochanter. The capsule was exposed and excised. The hip was then dislocated. The femoral neck was then resected and the head was removed. The acetabular was then exposed. Time was spent doing a complete circumferential capsular labral release. Sequential reaming of the acetabulum up to a size 47 reamer was done. A 48 mm G7 cup was then impacted into place. A single 25 mm screw was placed. The polyethylene liner was then snapped into place. The surrounding soft tissues were then injected with 100 cc of an orthopedic pain control cocktail. The femur was then exposed. Femoral canal was reamed. Sequential broaching was done up to a size 0 broach. Her canal is very small and reaming the canal was very difficult. A 32 mm head with a -3.5 neck was then placed. The hip was then reduced. The hip was brought through a full range of motion and felt to be stable. A single flat plate x-ray was obtained and I was happy with the overall alignment of the components. The hip was then dislocated. The complements were removed. The final size 0 high offset Avenir complete stem was then impacted into place. A 32 mm ceramic head with a -3.5 neck was then placed on the stem and the hip was reduced. The hip was brought through a full range of motion and felt to be stable. The wound was then irrigated. The abductors were then tenodesed back to the greater trochanter with transosseous FiberWire sutures and side to side sutures. A 3-minute Betadine lavage was then done. The fascia was then closed with #1 Vicryl suture. The deep fat layer was closed with #1 Vicryl. Skin was closed with 2-0 Vicryl and ivana. She was placed in a soft dressing. She was then transferred to a hospital bed and taken to the postanesthesia care unit in stable condition. She tolerated the procedure well. Zeb Em PA-C, was present for the entire procedure. He was critical for patient positioning, prepping, draping, retraction exposure, wound closure and application of sterile dressing. I attest to the content of the Intraoperative Record and any orders documented therein. Any exceptions are noted below.
--- NOTE | 2020-12-22 14:55 | XRay Report ---
XR hip 1V LT w pelvis CLINICAL HISTORY: Postoperative evaluation. COMPARISON: Left hip radiographs November 17, 2020. FINDINGS: Alignment of the left hip arthroplasty is anatomic. No periprosthetic fracture is noted. I rregularity along the inferior acetabulum is likely chronic/related osteophytosis. Acetabular screw i s noted. Positioning on this exam was difficult. IMPRESSION: Expected findings following total left hip arthroplasty. ACT 112: Negative or not required by law. Electronically signed by: Otf Thompson M.D. 12/22/2020 2:54 PM
[2020-12-22] MEDS ORDERED: METOCLOPRAMIDE HCL INJ 5 MG/ML 2 ML VIAL IV PRN (15:16)
[2020-12-22] MEDS ORDERED: oxyCODONE HCL IR 5 MG TAB (IMMEDIATE RELEASE) PO PRN (15:16)
[2020-12-22] MEDS ORDERED: HYDROmorphone INJ 0.5 MG/0.5 ML SYR IV PRN (15:16)
[2020-12-22] MEDS ORDERED: NALOXONE HCL 0.4 MG/1 ML VIAL/CARP IV PRN (15:16)
[2020-12-22] MEDS ORDERED: bisacodyL 10 MG SUPP PR PRN (15:16)
[2020-12-22] MEDS ORDERED: MAGNESIUM HYDROXIDE SUSP 30 ML UDC PO PRN (15:16)
[2020-12-22] MEDS ORDERED: SODIUM CHLORIDE 0.9% 1000ML 1,000 ML IV SCH (15:30)
--- NOTE | 2020-12-22 15:33 | Anesthesiology Progress Note ---
Date of Service December 22, 2020 Anesthesia Post Procedure Vital Signs Vital Signs: Temp Pulse Pulse Resp BP Pulse Ox 12/22/20 15:05 36.6 C 82 15 125/89 98 12/22/20 14:55 36.6 C 77 18 122/80 97 12/22/20 14:45 36.6 C 72 16 119/87 98 12/22/20 14:35 36.6 C 80 18 106/67 100 12/22/20 14:25 72 17 124/92 100 12/22/20 14:15 67 19 118/93 100 12/22/20 14:09 37.5 C 80 22 136/83 100 12/22/20 08:10 37.1 C 78 16 122/92 94 Transfer of Care Handoff Completed per policy Notes Mental Status: alert / awake / arousable and participated in evaluation Patient Amnestic to Procedure: Yes Nausea / Vomiting: adequately controlled Pain: adequately controlled Airway Patency, RR, SpO2: stable & adequate BP & HR: stable & adequate Hydration State: stable & adequate Neuraxial Anesthesia: was administered and sensory block is resolving Anesthetic Complications: no major complications apparent and Pt Satisfied with anesthetic care
[2020-12-22] MEDS: KETOROLAC 30 MG/ML VIAL IV SCH ×2 (16:19→20:51)
[2020-12-22] MEDS: ceFAZolin 2000MG 2,000 MG/15 ML SYR IV SCH (20:51)
[2020-12-22] MEDS: ASPIRIN 81 MG ECTAB PO SCH (20:52)
[2020-12-22] MEDS: SPIRONOLACTONE 100 MG TAB PO SCH (20:52)
[2020-12-22] MEDS: ATORVASTATIN 40 MG TAB PO SCH (20:52)
[2020-12-22] MEDS: SENNA 8.6 MG TAB PO SCH (20:53)
[2020-12-22] MEDS: DOCUSATE SODIUM 100 MG CAP PO SCH (20:53)
[2020-12-22] MEDS: ACETAMINOPHEN 500 MG TAB PO SCH (20:54)
[2020-12-23] MEDS ORDERED: MELATONIN 3 MG TAB PO ONE (00:56)
[2020-12-23] MEDS: ACETAMINOPHEN 500 MG TAB PO SCH ×3 (04:25→21:11)
[2020-12-23] MEDS: KETOROLAC 30 MG/ML VIAL IV SCH ×4 (04:25→21:10)
[2020-12-23] MEDS: ceFAZolin 2000MG 2,000 MG/15 ML SYR IV SCH (04:30)
--- NOTE | 2020-12-23 06:34 | Orthopedic Progress Note ---
Date of Service December 23, 2020 Assessment & Plan (1) Status post left hip replacement: Overall she is doing fairly well. She has been up and ambulating to the bathroom. She will be seen by therapy today for ambulation and range of motion exercises. She is on aspirin for DVT prophylaxis. We will plan discharge to home tomorrow. Chen Pretty was seen and examined at bedside this morning. Overall she is doing very well. She is having a little bit of soreness in the left hip but is not too bad. She has been up and ambulating to the bathroom. She has no complaints.. Review of Systems All systems reviewed & are unremarkable except as noted in HPI & below. Physical Exam On physical examination of the left hip, the dressing is clean and dry. She has active dorsiflexion plantarflexion of her left ankle. Sensation is intact throughout.. Results & Data Results & Data Laboratory Results . Diagnostic Findings Postoperative x-rays of the left hip show the prosthesis to be in anatomic alignment without any evidence of fracture, dislocation, or loosening. PG Care Time/CCT Total # of Minutes Spent Total Time Spent with Patient: Total time spent is greater than 50% in coordination of care (as documented) at patient's floor/unit and/or counseling patient: Coding Level of Care Code 25222 Post Operative Follow-Up Diagnoses Status post left hip replacement Z96.642
[2020-12-23] MEDS ORDERED: dexAMETHasone 4 MG TAB PO SCH (08:00)
[2020-12-23] MEDS: ASPIRIN 81 MG ECTAB PO SCH ×2 (08:39→21:10)
[2020-12-23] MEDS: DOCUSATE SODIUM 100 MG CAP PO SCH ×2 (08:39→21:10)
[2020-12-23] MEDS: MULTIVITAMIN TAB PO SCH (08:39)
[2020-12-23] MEDS: SPIRONOLACTONE 100 MG TAB PO SCH (21:10)
[2020-12-23] MEDS: SENNA 8.6 MG TAB PO SCH (21:11)
[2020-12-23] MEDS: ATORVASTATIN 40 MG TAB PO SCH (21:11)
[2020-12-24] MEDS: KETOROLAC 30 MG/ML VIAL IV SCH ×2 (03:27→09:11)
[2020-12-24] MEDS: ACETAMINOPHEN 500 MG TAB PO SCH (05:39)
--- NOTE | 2020-12-24 06:48 | Orthopedic Progress Note ---
Date of Service December 24, 2020 Assessment & Plan (1) Status post left hip replacement: Overall she doing fairly well. She denies any much pain in the left hip. She will be seen by physical therapy again today for ambulation and range of motion exercises. She can be discharged home later today. She is on aspirin for DVT prophylaxis. She can follow-up with orthopedics in 2 weeks. Chen Pretty was seen and examined at bedside this morning. Overall she is doing fairly well. She is not having much pain in the left hip. She was able to participate well with physical therapy yesterday. She has no complaints.. Review of Systems All systems reviewed & are unremarkable except as noted in HPI & below. Physical Exam On physical examination of the left hip, the dressing is clean and dry. Her leg lengths are equal. She has active dorsiflexion plantarflexion of her left ankle.. Results & Data Results & Data Laboratory Results . Diagnostic Findings . PG Care Time/CCT Total # of Minutes Spent Total Time Spent with Patient: Total time spent is greater than 50% in coordination of care (as documented) at patient's floor/unit and/or counseling patient: Coding Level of Care Code 71436 Post Operative Follow-Up Diagnoses Status post left hip replacement Z96.642
--- NOTE | 2020-12-24 06:49 | Discharge Summary ---
Date of Service December 24, 2020 Admission HPI (Per Admitting) Maria De Jesus is a pleasant 50-year-old female who I did a left knee replacement on June 2019. She is done well with that. Unfortunately she has been struggling with her left hip. X-rays and clinical examination have been diagnostic for advanced osteoarthritis of the left hip. After failing conservative treatment, she has elected proceed with a left total hip arthroplasty.. Admission Exam (Per Admitting) Physical examination of the left hip, she has a large pannus. She has decreased range of motion of her hip. She has pain with forced internal and external rotation. All of her pain is in her groin.. Principal Diagnosis Same as "Discharge Diagnosis" noted below under Discharge Instructions. Discharge Exam On physical examination of the left hip, the dressing is clean and dry. Her leg lengths are equal. She has active dorsiflexion plantarflexion of her left ankle.. Discharge Data Procedures Performed Operation Date: 12/22/20 10:20 Actual Procedures p Left Lateral Total Hip Replacment(Left) - Zeb Solano DO Hospital Course (1) Status post left hip replacement: On December 22, 2020 Maria De Jesus arrived at [facility] and underwent a left hip replaced without complication. She had a spinal anesthetic. Postoperatively she was started on aspirin for DVT prophylaxis and transferred to the general orthopedic floors. Her hospital course was uneventful. On postop day #1 her vital signs were stable and her pain was well controlled. She was able to participate well with physical therapy doing ambulation and range of motion exercises. On postop day #2 she continued to do well. She participated well once again with physical therapy. Her pain was well controlled. She was then discharged home. She will follow-up with orthopedics in 2 weeks. PG Care Time/CCT Total # of Minutes Spent Total Time Spent with Patient: Total time spent is greater than 50% in coordination of care (as documented) at patient's floor/unit and/or counseling patient: Discharge Plan Discharge Items Patient Disposition: Home - Home Health Services Reason For Visit: Left Hip Osteoarthritis Discharge Diagnosis: Left hip replacement Activity: As commented below Non-emergency contact: Surgeon Call non-emergency contact if: your wound has increased redness and your wound has increased drainage Follow-up/Referrals: Yuri Aguilera M.D. [Primary Care Provider] - Diet: Regular Addtl Attending Provider Instructions: Activity and Therapy Recommendations: * If you are using [facility] then therapy will be provided at your home until they feel you have accomplished all of your goals. * If you are using [facility] then Physical Therapy will be provided until they feel you are ready to start Outpatient Physical Therapy. * If you are not using home therapy then Outpatient Physical Therapy should start about 3-5 days from your day of surgery. Therapy will last about 6-10 weeks * You were shown a series of exercises in the hospital. Do these exercises three times each day including the exercises you were shown in physical therapy. * Get up and walk several times each day.~ For the first four weeks, try not to stand or walk for more than one hour at a time. If you do stand or walk for more than one hour, you will not hurt anything, but your leg will likely swell.~~ * As you feel comfortable, you may change from the walker or crutches to a cane and~then to independent walking. Medications: * Narcotic You will likely be sent home from the hospital with a prescription for the narcotic pain medication that worked best throughout your stay. * Aspirin Most patients will be required to take Aspirin 81mg twice a day for 6 weeks after surgery. This is obtained [id number] and a prescription is not necessary. * Other medications may be prescribed for specific circumstances. If you have any questions, please call the office at . * Resume previous home medications unless otherwise instructed TEDs/Elastic Stockings: The white elastic stockings help limit swelling and prevent blood clots from forming in your legs. The more you wear them, the more they work. Wear them for six weeks. Dressing Care: You may remove the dressing 48 hours after the surgery. If the incision is not draining then you may leave the ivana open to air. If there is a little bit of drainage or if the ivana are getting stuck on your clothing then cover the incision with a dry dressing. The ivana will be removed at your 2 week follow-up appointment. Showering: You may shower 5 days after day of surgery as long as the wound is not draining. Let soapy water run over the ivana and pat them dry. Do not scrub or soak the incision. Things To Watch For: * Drainage from the incision site that occurs more than one week after your surgery. * Increased redness at the incision site. * Fever above 102 degrees Fahrenheit. * Unusual chest pain or shortness of breath. * Call [facility] at with any of the above problems Follow-Up Visit: Follow-up with Dr. Solano's PA (Zeb Em) 2-3 weeks after your day of surgery. He will remove your ivana and answer any questions. If you have any additional questions or concerns, Dr Solano is usually in the office at the same time and will be available An appointment was probably scheduled when you signed-up for surgery in the office. If you have any questions call Office Instructions: More detailed instructions as well as Frequently Asked Questions were provided in a folder by our office when you signed-up for surgery. Please review these instructions when you get home. If you have any further questions or concerns, please feel free to call the office at [phone] Pending Studies at Discharge: No Stand-Alone Forms: My [facility] Medications and DC Order Prescriptions: New oxycodone 5 mg Tablet 5 mg PO Q4H PRN (Reason: pain) Qty: 30 RF: 0 aspirin 81 mg Tablet,Delayed Release (Dr/Ec) 81 mg PO BID 42 Days Qty: 84 RF: 0 Continued naproxen [EC-Naprosyn] 500 mg tablet,delayed release (DR/EC) 500 mg PO BID PRN (Reason: pain) RF: 0 tramadol 50 mg tablet 50 mg PO Q6H PRN (Reason: Pain) RF: 0 (DME) [facility] [place] See Rx Instructions .ROUTE .MEDSUPPLY Qty: 1 RF: 0 atorvastatin 40 mg Tablet 40 mg PO PM RF: 0 spironolactone 100 mg Tablet 100 mg PO QPM RF: 0 acetaminophen [Tylenol Extra Strength] 500 mg Tablet 1,000 mg PO Q6H PRN (Reason: Pain) RF: 0 apple cider vinegar 1 tab PO DAILY RF: 0 Discharge Orders: Discharge Order (Routine); Ordered 12/24/20 Ordered By: Zeb Solano Admission Data Admit Date/Time: 12/22/20 14:15 Attending Provider: Zeb Solano Admit Provider: Zeb Solano Primary Care Provider: Yuri Aguilera
[2020-12-24] MEDS: DOCUSATE SODIUM 100 MG CAP PO SCH (09:10)
[2020-12-24] MEDS: MULTIVITAMIN TAB PO SCH (09:10)
[2020-12-24] MEDS: ASPIRIN 81 MG ECTAB PO SCH (09:11)
== END 2020-12-24 12:07 | disposition home health service (06) ==
LOC: 3E 07:26 → ASU 07:26